=== PATIENT | male | born 1965 | race Caucasian/White ===

== ENCOUNTER 2018-08-29 12:59 | Inpatient (IN) ==
[2018-08-30] MEDS ORDERED: Metoprolol Tartrate 25 MG Tablet PO SCH (05:00)
--- NOTE | 2018-08-30 10:06 | P.HPIM ---
History of Present Illness Primary Care Physician: Dr. Roopa Brennan Chief Complaint: SOB, History of Present Illness: This is a 53-year-old male patient with a past medical history which includes depression/anxiety, hyperlipidemia, hypertension and severe aortic valve stenosis-2D echocardiogram done February 27, 2018 reveals mildly dilated left ventricle. Moderate concentric left ventricular hypertrophy. Left ventricular systolic function is normal with an estimated ejection fraction 60-65%. The left atrial size is mild to moderately dilated. Mild aortic dilation at level of sinus of Valsalva. The aortic root diameter is measured at 4.6 cm. Mural annular calcification is present. Mild mitral valve regurgitation. Moderate thickening of the aortic valve leaflets. Diffuse calcifications of aortic valve. No aortic valve regurgitation. Severe aortic valve stenosis. Aortic valve area measures 0.6 cm. Aortic valve mean gradient is 85 mmHg. There is mild tricuspid valve regurgitation. The estimated pulmonary arterial pressure is 41.1 mmHg. Estimated RAP 3 mmHg. Patient presented to [facility] with reported worsening shortness of breath and fatigue. Due to severe aortic stenosis patient was then transferred to [facility] for evaluation of valve replacement. Patient denies chest pain, N/V/D/C, fevers/chills, or changes in weight. PMH: depression/anxiety, hyperlipidemia, hypertension and severe aortic valve stenosis PSxH: hydroma removed as an infant tonsillectomy as a child varicose vein repair x2 Social history: ETOH use once a month former smoker smoked from age 11 quit 3 months ago illicit drug use marijuana 2 times per week cocaine last used 5 years ago Family medical history reviewed and noncontributory Medications and Allergies Allergies Allergy/AdvReac Type Severity Reaction Status Date / Time guaifenesin [From Mucinex] Allergy Agitation Verified 08/30/18 07:22 Home Medications Medication Instructions Recorded Confirmed Type alprazolam 1 mg PO HS 08/29/18 08/30/18 History carvedilol 12.5 mg PO BID 08/29/18 08/30/18 History ergocalciferol (vitamin D2) 50,000 PO WEEKLY 08/29/18 History lisinopril 10 mg PO DAILY 08/29/18 08/30/18 History Physical Exam Vital signs: Last Vital Signs Temp 97.5 F L 08/30/18 08:00 Pulse 70 08/30/18 08:00 Resp 18 08/30/18 08:00 BP 133/91 H 08/30/18 08:00 Pulse Ox 100 08/30/18 08:00 Narrative: GENERAL: This is a well-nourished, well-developed patient, in no apparent distress. CARDIOVASCULAR: Regular rate and rhythm with 4-5/6 systolic murmur present RESPIRATORY: Clear to auscultation. Breath sounds equal bilaterally. No wheezes , rales, or rhonchi. GASTROINTESTINAL: Abdomen soft, non-tender, nondistended. Normal active bowel sounds MUSCULOSKELETAL: Extremities without clubbing, cyanosis, or edema. NEURO: Alert & Oriented x4 to person, place, time, situation. Moves all ext x4 Results Labs CBC & Chem 7: 09/03/18 04:31 09/03/18 04:31 Caprini VTE Risk Assessment Caprini VTE Risk Assessment: No/Low Risk (score <= 1) Caprini Risk Assessment Model: Point Value = 1 Point Value = 2 Point Value = 3 Point Value = 5 Age 41-60 Minor surgery BMI > 25 kg/m2 Swollen legs Varicose veins or History of unexplained or recurrent spontaneous Oral contraceptives or hormone replacement Sepsis (< 1 month) Serious lung disease, including pneumonia (< 1 month) Abnormal pulmonary function Acute myocardial infarction Congestive heart failure (< 1 month) History of inflammatory bowel disease Medical patient at bed rest Age 61-74 Arthroscopic surgery Major open surgery (> 45 min) Laparoscopic surgery (> 45 min) Malignancy Confined to bed (> 72 hours) Immobilizing plaster cast Central venous access Age >= 75 History of VTE Family history of VTE Factor V Leiden Prothrombin [id number] Lupus anticoagulant Anticardiolipin antibodies Elevated serum homocysteine Heparin-induced thrombocytopenia Other congenital or acquired thrombophilia Stroke (< 1 month) Elective arthroplasty Hip, pelvis, or leg fracture Acute spinal cord injury (< 1 month) Prophylaxis Regimen: Total Risk Factor Score Risk Level Prophylaxis Regimen 0-1 Low Early ambulation 2 Moderate Order ONE of the following: *Sequential Compression Device (SCD) *Heparin 5000 units SQ BID 3-4 Higher Order ONE of the following medications: *Heparin 5000 units SQ TID *Enoxaparin/Lovenox 40 mg SQ daily (WT < 150 kg, CrCl > 30 mL/min) *Enoxaparin/Lovenox 30 mg SQ daily (WT < 150 kg, CrCl > 10-29 mL/min) *Enoxaparin/Lovenox 30 mg SQ BID (WT < 150 kg, CrCl > 30 mL/min) AND/OR *Sequential Compression Device (SCD) 5 or more Highest Order ONE of the following medications: *Heparin 5000 units SQ TID (Preferred with Epidurals) *Enoxaparin/Lovenox 40 mg SQ daily (WT < 150 kg, CrCl > 30 mL/min) *Enoxaparin/Lovenox 30 mg SQ daily (WT < 150 kg, CrCl > 10-29 mL/min) *Enoxaparin/Lovenox 30 mg SQ BID (WT < 150 kg, CrCl > 30 mL/min) AND *Sequential Compression Device (SCD) Assessment and Plan Plan This is a 53-year-old male patient with a past medical history which includes depression/anxiety, hyperlipidemia, hypertension and severe aortic valve stenosis-2D echocardiogram done February 27, 2018 reveals mildly dilated left ventricle. Moderate concentric left ventricular hypertrophy. Left ventricular systolic function is normal with an estimated ejection fraction 60-65%. The left atrial size is mild to moderately dilated. Mild aortic dilation at level of sinus of Valsalva. The aortic root diameter is measured at 4.6 cm. Mural annular calcification is present. Mild mitral valve regurgitation. Moderate thickening of the aortic valve leaflets. Diffuse calcifications of aortic valve. No aortic valve regurgitation. Severe aortic valve stenosis. Aortic valve area measures 0.6 cm. Aortic valve mean gradient is 85 mmHg. There is mild tricuspid valve regurgitation. The estimated pulmonary arterial pressure is 41.1 mmHg. Estimated RAP 3 mmHg. Patient presented to [facility] with reported of worsening shortness of breath. Due to severe aortic stenosis patient was then transferred to [facility] for evaluation of valve replacement. Severe aortic valve stenosis Patient presented to [facility] with reported worsening shortness of breath. Due to severe aortic stenosis patient was then transferred to [facility] for evaluation of valve replacement. Status post right and left cardiac catheterization 08/29/[address] Miranda with conclusion 1 mild pulmonary hypertension. 2 normal coronary arteries. 3 preserved left ventricular systolic function. 4 severe aortic stenosis with valve area 0.6 cm Echocardiogram 08/17/2018 final impression left ventricular hypertrophy with normal left ventricular wall motion and contractility. Normal left ventricular ejection fraction of 68%. Dilated left and right atria with no evidence of thrombus. Normal right ventricular dimension with normal wall motion and contractility. Normal main pulmonary artery, aortic root and aortic arch dimensions. Mildly dilated visualized proximal ascending aorta, with no evidence of tear or dissection. Dilated right ventricular outflow tract diameter. Normal inferior vena cava dimension and respiratory collapsibility. Aortic wall calcifications. Aortic and mitral annuli calcifications. Thickened and calcified margins of the coronary cusp of the aortic valve with severe restriction of motion. Calcified margins of the mitral valve leaflets with normal motility. Normal tricuspid valve and pulmonary valve. No pericardial effusion. Consult to cardiology Consult to cardiothoracic surgery Depression/anxiety Continue patient's home alprazolam 1 mg p.o. nightly Hyperlipidemia Cardiac diet Hypertension Continue patient's home carvedilol 12.5 mg p.o. twice daily and lisinopril 10 mg p.o. daily DVT prophylaxis with SCDs Attending Attestation The exam, history, and the medical decision-making described in the above note were completed with the assistance of the mid-level provider. I reviewed and agree with the findings presented. I attest that I had a [id number] encounter with the patient on the same day, and personally performed and documented my assessment and findings in the medical record. Patient examined. Assessment and plan formulated with Emily Diaz PA-C. I agree with the above. H&P: Quality VTE Deep Vein Thrombosis/Pulmonary Embolism Present on Admission: No
[2018-08-30] MEDS ORDERED: Acetaminophen 325 MG Tablet PO PRN (10:27)
[2018-08-30 11:20] LABS: Activated Partial Thrombo Time 26.6 sec (23.4-31.7); Baso # (Auto) 0.1 th/mm3 (0.0-0.2); Baso % (Auto) 0.9 % (0.0-2.0); Eos # (Auto) 0.3 th/mm3 (0.0-0.4); Eos % (Auto) 3.9 % (0.0-4.0); Hematocrit 41.1 % (39.0-51.0); Hemoglobin 13.6 gm/dL (13.0-17.0); Lymph # (Auto) 2.6 th/mm3 (1.0-4.8); Lymph % (Auto) 31.3 % (9.0-44.0); Mean Corpuscular HGB Conc 33.2 % (32.0-36.0); Mean Corpuscular Hemoglobin 27.7 pg (27.0-34.0); Mean Corpuscular Volume 83.5 fL (80.0-100.0); Mean Platelet Volume 6.8 fL (7.0-11.0); Mono # (Auto) 0.6 th/mm3 (0.0-0.9); Mono % (Auto) 6.9 % (0.0-8.0); Neut # (Auto) 4.7 th/mm3 (1.8-7.7); Platelet Count 358 th/mm3 (150-450); Prothrombin Time 10.3 sec (9.8-11.6); Red Blood Count 4.93 mil/mm3 (4.50-5.90); White Blood Count 8.2 th/mm3 (4.0-11.0)
[2018-08-30] MEDS ORDERED: ALPRAZolam 0.5 MG Tablet PO PRN (11:36)
[2018-08-30 11:42] LABS: Alanine Aminotransferase 30 U/L (12-78); Albumin 3.7 g/dL (3.4-5.0); Anion Gap 6 meq/L (5-15); Aspartate Aminotransferase 21 U/L (15-37); Blood Urea Nitrogen 19 mg/dL (7-18); Calcium 8.4 mg/dL (8.5-10.1); Carbon Dioxide 28.1 meq/L (21.0-32.0); Chloride 102 meq/L (98-107); Glomerular Filtration Rate 78 mL/min (>89); Glucose,Random 159 mg/dL (74-106); Potassium 4.2 meq/L (3.5-5.1); Sodium 136 meq/L (136-145)
[2018-08-30 11:43] LABS: Alkaline Phosphatase 63 U/L (45-117); Total Protein 8.6 g/dL (6.4-8.2)
[2018-08-30] MEDS ORDERED: Insulin Regular (For Infusion) 100 UNIT in Sodium Chlor 0.9% Inj 99 ML IV.CONT PRN (14:12)
[2018-08-30] MEDS ORDERED: Dextrose 50% in Water 50 ML Vial IV.PUSH PRN (14:12)
[2018-08-30] MEDS ORDERED: Chlorhexidine 4% Topical 120 APPLIC/120 ML Bottle TOPICAL SCH (14:15)
[2018-08-30] MEDS ORDERED: Sodium Chloride 0.9% Irr Bot 500 ML, ceFAZolin Inj 500 MG IRRIGATION SCH ×2 (14:15)
--- NOTE | 2018-08-30 14:59 | P.PNCV ---
- Note Subjective/Hospital Course: pt seen and evaluated , full consult to follow sts data discussed with pt RISK SCORES Procedure: Isolated AVR CALCULATE Risk of Mortality: 1.208% Renal Failure: 1.806% Permanent Stroke: 0.395% Prolonged Ventilation: 6.842% DSW Infection: 0.294% Reoperation: 2.358% Morbidity or Mortality: 9.380% Short Length of Stay: 48.411% Long Length of Stay: 4.189% Objective: Vital Signs - 24 hr 08/30/18 00:00 08/30/18 01:46 08/30/18 02:46 Temperature 97.7 F Pulse Rate 70 78 73 Respiratory Rate 18 Blood Pressure 123/86 Pulse Oximetry 98 08/30/18 03:00 08/30/18 04:00 08/30/18 05:00 Temperature 98.1 F Pulse Rate 72 70 66 Respiratory Rate 16 Blood Pressure 118/85 Pulse Oximetry 96 08/30/18 06:00 08/30/18 08:00 08/30/18 10:00 Temperature 97.5 F L Pulse Rate 71 70 75 Respiratory Rate 18 Blood Pressure 133/91 H Pulse Oximetry 100 08/30/18 11:00 08/30/18 12:00 08/30/18 12:34 Temperature 98.2 F Pulse Rate 70 76 Respiratory Rate 18 Blood Pressure 123/85 Pulse Oximetry 97 98 08/30/18 13:00 08/30/18 14:00 Temperature Pulse Rate 75 76 Respiratory Rate Blood Pressure Pulse Oximetry Labs: Laboratory Results - last 12 hr 08/30/18 08/30/18 08/30/18 10:49 10:49 10:49 WBC 8.2 RBC 4.93 Hgb 13.6 Hct 41.1 MCV 83.5 MCH 27.7 MCHC 33.2 RDW 16.0 Plt Count 358 MPV 6.8 L Prelim Diff (Auto) Slide review pending Neut % (Auto) 57.0 Lymph % (Auto) 31.3 [place] % (Auto) 6.9 Eos % (Auto) 3.9 Baso % (Auto) 0.9 Neut # (Auto) 4.7 Lymph # (Auto) 2.6 [place] # (Auto) 0.6 Eos # (Auto) 0.3 Baso # (Auto) 0.1 WBC Differential . Diff Scan Auto diff confirmed Differential Comment . PT 10.3 INR 1.0 APTT 26.6 Sodium 136 Potassium 4.2 Chloride 102 Carbon Dioxide 28.1 Anion Gap 6 BUN 19 H Creatinine 0.99 Estimated GFR 78 L Random Glucose 159 H Calcium 8.4 L Total Bilirubin 0.3 AST 21 ALT 30 Alkaline Phosphatase 63 Total Protein 8.6 H Albumin 3.7 Result Diagrams: 08/30/18 10:49 08/30/18 10:49
[2018-08-30] MEDS ORDERED: ceFAZolin 2 GM Premix Inj 2 GM/50 ML PIGGYBACK IV.SIG ONE (15:00)
[2018-08-30] MEDS ORDERED: ceFAZolin Inj 2,000 MG in Sodium Chlor 0.9% Inj 80 ML IV.SIG SCH (15:00)
--- NOTE | 2018-08-30 16:26 | XR ---
EXAM DATE: 08/30/2018 4:21 PM EST AGE/SEX: 53 years / Male INDICATIONS: Evaluate for pneumonia, pneumothorax, or communicable disease. Pre-op heart valve repla cement. CLINICAL DATA: This is the patient's initial encounter. Patient reports that signs and symptoms have been present for 1 day and indicates a pain score of 0/10. MEDICAL/SURGICAL HISTORY: Hypertension. None. COMPARISON: None. FINDINGS: PA and lateral views of the chest demonstrate the lungs to be symmetrically aerated without evidence of mass, infiltrate or effusion. The cardiomediastinal contours are unremarkable. Osseous structures are intact. CONCLUSION: No acute cardiopulmonary disease. Electronically signed by: Shay Ang MD Board Certified Radiologist 08/30/2018 4:24 PM EST
--- NOTE | 2018-08-30 17:28 | US ---
EXAM DATE: 08/30/2018 5:24 PM EST AGE/SEX: 53 years / Male INDICATIONS: Syncope. CLINICAL DATA: This is the patient's initial encounter. Patient reports that signs and symptoms have been present for 1 day and indicates a pain score of 0/10. MEDICAL/SURGICAL HISTORY: Hypertension. Hyperlipidemia. Varicose veins. None. COMPARISON: No prior exams available for comparison. VELOCITY PARAMETERS: ICA/CCA Ratio: Right 0.9 , Left 0.8 ICA: Right 47.4 cm/sec, Left 46.3 cm/sec CCA: Right 54.9 cm/sec, Left 60.0 cm/sec ECA: Right 72.6 cm/sec, Left 54.4 cm/sec Vertebral: Right 36.9 cm/sec antegrade, Left 31.3 cm/sec antegrade FINDINGS: Right Carotid: No significant plaque is visualized.The waveforms are within normal limits. Left Carotid: No significant plaque is visualized. The waveforms are within normal limits. Other: None. CONCLUSION: 1. Right Internal Carotid Artery: No significant stenosis or atherosclerotic plaque is visualized. 2. Left Internal Carotid Artery: No significant stenosis or atherosclerotic plaque is visualized. Electronically signed by: Gibran Camp MD Board Certified Radiologist 08/30/2018 5:27 PM EST
--- NOTE | 2018-08-30 17:56 | ECG ---
Date Performed: 08/30/2018 Time Performed: 11:13:12 PTAGE: 53 years EKG: Sinus rhythm with 1st degree A-V block. LVH with secondary repolarization abnormality Inferior/lateral ST-T winkler es are probably due to ventricular hypertrophy Abnormal ECG NO PREVIOUS TRACING DOCTOR: Florentino Chaudhry Interpretating Date/Time 08/30/2018 17:54:18
[2018-08-30] MEDS: Carvedilol 12.5 MG Tablet PO SCH (20:34)
[2018-08-30] MEDS: Senna/Docusate Sodium 8.6/50 MG Tablet PO SCH (20:34)
[2018-08-31 05:20] LABS: Baso # (Auto) 0.1 th/mm3 (0.0-0.2); Baso % (Auto) 1.2 % (0.0-2.0); Eos # (Auto) 0.4 th/mm3 (0.0-0.4); Eos % (Auto) 5.1 % (0.0-4.0); Lymph # (Auto) 2.4 th/mm3 (1.0-4.8); Mean Corpuscular HGB Conc 33.2 % (32.0-36.0); Mean Corpuscular Hemoglobin 27.5 pg (27.0-34.0); Mean Corpuscular Volume 82.8 fL (80.0-100.0); Mean Platelet Volume 6.9 fL (7.0-11.0); Mono # (Auto) 0.7 th/mm3 (0.0-0.9); Mono % (Auto) 9.2 % (0.0-8.0); Neut % (Auto) 52.5 % (16.0-70.0); Platelet Count 318 th/mm3 (150-450); Red Blood Count 4.72 mil/mm3 (4.50-5.90); Red Cell Distribution Width 15.7 % (11.6-17.2); White Blood Count 7.5 th/mm3 (4.0-11.0)
[2018-08-31 05:38] LABS: Albumin 3.7 g/dL (3.4-5.0); Anion Gap 6 meq/L (5-15); Aspartate Aminotransferase 20 U/L (15-37); Blood Urea Nitrogen 19 mg/dL (7-18); Chloride 102 meq/L (98-107); Glomerular Filtration Rate 85 mL/min (>89); Glucose,Random 106 mg/dL (74-106); Magnesium 2.2 mg/dL (1.5-2.5); Potassium 4.2 meq/L (3.5-5.1); Sodium 136 meq/L (136-145)
[2018-08-31 05:39] LABS: Alanine Aminotransferase 30 U/L (12-78)
[2018-08-31 05:40] LABS: Alkaline Phosphatase 58 U/L (45-117); Total Protein 8.2 g/dL (6.4-8.2)
--- NOTE | 2018-08-31 07:16 | MB ---
cc: Negrito Carrasquillo MD DATE: 08/30/2018 HISTORY OF PRESENT ILLNESS: A 53-year-old male transferred from [facility], patient of Dr. Juancarlos Brennan in [place] and Dr. Casa Miranda. Transferred post-heart catheterization for severe aortic stenosis. Transferred for evaluation for aortic valve replacement. 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 Recently was in [place] and had an episode of congestive heart failure where he was seen and evaluated and had an echocardiogram, which showed a normal ejection fraction 68%, severe aortic stenosis. Valve area by heart catheterization showed 0.63, mean gradient of 82. Underwent further evaluation with the cardiac catheterization by Dr. Miranda, which showed mild pulmonary hypertension, normal coronary arteries, preserved LV systolic function, severe with a valve area of 0.6 cm2. Hemodynamics showed a pulmonary capillary wedge of 25, cardiac output of 7.2. The patient has had progressive shortness of breath, increasing over the past year. He has known about the murmur for about 20 years, but did not have it worked up. He recently was treated for possible pneumonia back in June, was treated with antibiotics. While he was recently overseas, they placed him on diuretics. PAST MEDICAL HISTORY: Includes severe aortic stenosis, severe obesity with a BMI of 41, hypertension. PAST SURGICAL HISTORY: He has had a left shoulder cyst removed, some type of a hygroma, where he has a fairly large incision under the left axilla area. That occurred as a child. He has also had some vein stripping to both legs, initially in 2006 and then repeat in 2016. Tonsillectomy. ALLERGIES: GUAIFENESIN. HOME MEDICATIONS: Include p.r.n. Xanax, Coreg 12.5 b.i.d., lisinopril 10 p.o. daily. FAMILY HISTORY: Father of complications of an automobile accident at 81, but had a stroke in his 70s. Mother alive and healthy. SOCIAL HISTORY: The patient is . Two stepchildren. Smoked remotely in the past, 3 packs per week. He quit a month and a half ago. He has been smoking since the age of 12. Rare alcohol, occasional marijuana. REVIEW OF SYSTEMS: GENERAL: No night sweats, fever, heat and cold intolerance. SKIN: No psoriasis, itching or hives. HEENT: No blurred vision, hearing loss. RESPIRATORY: Positive for shortness of breath with exertion. No paroxysmal nocturnal dyspnea. CARDIOVASCULAR: He has had some mild chest tightness with exertion. No syncope. GASTROINTESTINAL: No diarrhea or vomiting. GENITOURINARY: No burning, frequency, urgency. CENTRAL NERVOUS SYSTEM: No history of TIA, CVA or seizure disorder. ENDOCRINOLOGY: No history of diabetes or hypothyroidism. PHYSICAL EXAMINATION: VITAL SIGNS: Blood pressure 120/80, heart rate is 76, temperature T-max 98.2. GENERAL: Awake, alert, in no acute distress. HEENT: Head is normocephalic, atraumatic. Pupils equal and reactive. Oral mucosa pink, moist. NECK: Supple. No JVD. CARDIOVASCULAR: Heart sounds S1, S2 with a grade 2-3/6 systolic murmur best heard on the left sternal border. LUNGS: Clear to auscultation. No wheezes, rales or rhonchi. ABDOMEN: Soft, obese, nontender. EXTREMITIES: Reveal fairly large varicosities to both legs, good distal pulses. No lesions or rashes noted to the skin. LABORATORY DATA: Shows hemoglobin of 13, hematocrit of 41, white cell count 8.2, platelet count of 358. Sodium 136, potassium 4.2, BUN of 19, creatinine 0.99, glucose 159. INR 1.0. RADIOLOGICAL EXAMS: Are pending. Sinus rhythm, first-degree AV block. He has got some LVH, nonspecific ST changes. IMPRESSION: This is a 53-year-old male with severe aortic stenosis with a valve area of 0.6 cm2, positive for symptoms including chest tightness, shortness of breath, some lightheadedness. No syncope. PLAN: At this time is for further evaluation and workup and then planning for aortic valve replacement. The patient was seen by Dr. Negrito Carrasquillo and the patient is requesting evaluation for a tissue valve at this time. Plan will be for Monday. Dictated by Ashley Jacobo APRN The patient was examined and chart reviewed on 08/30/2018. I agree with above.The ECHO and angiographic findings were discussed in detail with the patient and his . I agree that he will maximally benefit from Aortic Valve Replacement therapy. The option of mechanical versus tissue valve was discussed in detail as well as the advantages and disadvantages of both types of valves. He understands the provided information and wishes to opt for the tissue valve. The risks, complications including but not limited to bleeding, infection, stroke, myocardial injury and , and benefits of the surgical procedure were discussed in details and all questions answered. He understands the provided information and agrees to proceed with the planned operation. We will plan on proceeding with the surgical procedure as describe above on Monday, . Thank you for allowing me to participate in the care of this patient. MD ISRRAEL Cerrato/mellisa , 03:08 PM , 03:21 PM BERTHA
[2018-08-31] MEDS: Senna/Docusate Sodium 8.6/50 MG Tablet PO SCH ×2 (09:24→21:35)
[2018-08-31] MEDS: Lisinopril 10 MG Tablet PO SCH (09:24)
[2018-08-31] MEDS: Carvedilol 12.5 MG Tablet PO SCH ×2 (09:24→21:36)
--- NOTE | 2018-08-31 14:57 | P.PNCV ---
- Note Subjective/Hospital Course: 53-year-old male transferred from [facility], patient of Dr. Juancarlos Brennan in [place] and Dr. Casa Miranda. Transferred post-heart catheterization for severe aortic stenosis ( aortic valve replacement). 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 Recently was in [place] and had an episode of congestive heart failure where he was seen and evaluated and had an echocardiogram, which showed a normal ejection fraction 68%, severe aortic stenosis. Valve area by heart catheterization showed 0.63, mean gradient of 82. Underwent further evaluation with the cardiac catheterization by Dr. Miranda, , normal coronary arteries, preserved LV systolic function, severe with a valve area of 0.6 cm2. Hemodynamics showed a pulmonary capillary wedge of 25, cardiac output of 7.2. The patient has had progressive shortness of breath, increasing over the past year. He has known about the murmur for about 20 years, but did not have it worked up. He recently was treated for possible pneumonia back in June, was treated with antibiotics. While he was recently overseas, they placed him on diuretics. PAST MEDICAL HISTORY: Includes severe aortic stenosis, severe obesity with a BMI of 41, hypertension. PAST SURGICAL HISTORY: left shoulder cyst removed, some type of a hygroma, where he has a fairly large incision under the left axilla area, age 17months, vein stripping to both lower legs 08/31 pt denies any chest pain or SOB Carotid US ok for surgery on Monday Objective: Vital Signs - 24 hr 08/30/18 15:00 08/30/18 15:44 08/30/18 16:00 Temperature 98.1 F Pulse Rate 68 72 68 Respiratory Rate 18 Blood Pressure 123/86 Pulse Oximetry 98 08/30/18 17:00 08/30/18 18:09 08/30/18 18:24 Temperature 98.9 F Pulse Rate 71 74 75 Respiratory Rate 17 Blood Pressure 124/78 Pulse Oximetry 98 08/30/18 19:00 08/30/18 20:00 08/30/18 21:00 Temperature 98.5 F Pulse Rate 76 80 84 Respiratory Rate 16 Blood Pressure 116/80 Pulse Oximetry 96 08/30/18 22:00 08/30/18 23:00 08/30/18 23:59 Temperature 99.5 F Pulse Rate 82 76 78 Respiratory Rate 18 Blood Pressure 127/72 Pulse Oximetry 95 08/31/18 00:00 08/31/18 01:00 08/31/18 02:00 Temperature Pulse Rate 68 68 70 Respiratory Rate Blood Pressure Pulse Oximetry 08/31/18 03:00 08/31/18 04:00 08/31/18 05:00 Temperature 98.0 F Pulse Rate 69 76 64 Respiratory Rate 16 Blood Pressure 125/79 Pulse Oximetry 94 L 08/31/18 06:00 08/31/18 07:00 08/31/18 08:00 Temperature 97.5 F L Pulse Rate 87 77 77 Respiratory Rate 16 Blood Pressure 136/87 Pulse Oximetry 94 L 08/31/18 09:00 08/31/18 10:00 08/31/18 11:00 Temperature Pulse Rate 77 79 69 Respiratory Rate Blood Pressure Pulse Oximetry 08/31/18 12:00 Temperature 98.9 F Pulse Rate 69 Respiratory Rate 16 Blood Pressure 109/77 Pulse Oximetry 95 GENERAL: SKIN: Warm and dry. HEAD: Normocephalic. EYES: No scleral icterus. No injection or drainage. NECK: Supple, trachea midline. No JVD or lymphadenopathy. CARDIOVASCULAR: Regular rate and rhythm without , gallops, or rubs, 3/6 sm RESPIRATORY: Breath sounds equal bilaterally. No accessory muscle use. GASTROINTESTINAL: Abdomen soft, non-tender, nondistended. MUSCULOSKELETAL: No cyanosis, or edema. BACK: Nontender without obvious deformity. No CVA tenderness. Labs: Laboratory Results - last 12 hr 08/31/18 08/31/18 04:12 04:12 WBC 7.5 RBC 4.72 Hgb 13.0 Hct 39.0 MCV 82.8 MCH 27.5 MCHC 33.2 RDW 15.7 Plt Count 318 MPV 6.9 L Neut % (Auto) 52.5 Lymph % (Auto) 32.0 [place] % (Auto) 9.2 H Eos % (Auto) 5.1 H Baso % (Auto) 1.2 Neut # (Auto) 4.0 Lymph # (Auto) 2.4 [place] # (Auto) 0.7 Eos # (Auto) 0.4 Baso # (Auto) 0.1 WBC Differential . Differential Comment Auto diff final Sodium 136 Potassium 4.2 Chloride 102 Carbon Dioxide 28.0 Anion Gap 6 BUN 19 H Creatinine 0.92 Estimated GFR 85 L Random Glucose 106 Calcium 9.0 Magnesium 2.2 Total Bilirubin 0.3 AST 20 ALT 30 Alkaline Phosphatase 58 Total Protein 8.2 Albumin 3.7 Result Diagrams: 08/31/18 04:12 08/31/18 04:12 Telemetry: NSR - Plan (1) Aortic stenosis Plan: for surgery on Monday
--- NOTE | 2018-08-31 17:36 | P.PNIM ---
Subjective Interval history: No new clinical complaints. Physical Exam Vital signs: Last Vital Signs Temp 98.8 F 08/31/18 16:00 Pulse 69 08/31/18 16:00 Resp 16 08/31/18 16:00 BP 108/72 08/31/18 16:00 Pulse Ox 95 08/31/18 16:00 Narrative: GENERAL: This is a well-nourished, well-developed patient, in no apparent distress. CARDIOVASCULAR: Regular rate and rhythm with 4-5/6 systolic murmur present RESPIRATORY: Clear to auscultation. Breath sounds equal bilaterally. No wheezes , rales, or rhonchi. GASTROINTESTINAL: Abdomen soft, non-tender, nondistended. Normal active bowel sounds MUSCULOSKELETAL: Extremities without clubbing, cyanosis, or edema. NEURO: Alert & Oriented x4 to person, place, time, situation. Moves all ext x4 Results Labs CBC & Chem 7: 09/03/18 04:31 09/03/18 04:31 Assessment and Plan Assessment (1) Aortic stenosis: Code(s): I35.0 - Nonrheumatic aortic (valve) stenosis Status: Acute (2) Morbid obesity: Code(s): E66.01 - Morbid (severe) obesity due to excess calories Status: Chronic Plan This is a 53-year-old male patient with a past medical history which includes depression/anxiety, hyperlipidemia, hypertension and severe aortic valve stenosis-2D echocardiogram done February 27, 2018 reveals mildly dilated left ventricle. Moderate concentric left ventricular hypertrophy. Left ventricular systolic function is normal with an estimated ejection fraction 60-65%. The left atrial size is mild to moderately dilated. Mild aortic dilation at level of sinus of Valsalva. The aortic root diameter is measured at 4.6 cm. Mural annular calcification is present. Mild mitral valve regurgitation. Moderate thickening of the aortic valve leaflets. Diffuse calcifications of aortic valve. No aortic valve regurgitation. Severe aortic valve stenosis. Aortic valve area measures 0.6 cm. Aortic valve mean gradient is 85 mmHg. There is mild tricuspid valve regurgitation. The estimated pulmonary arterial pressure is 41.1 mmHg. Estimated RAP 3 mmHg. Patient presented to [facility] with reported of worsening shortness of breath. Due to severe aortic stenosis patient was then transferred to [facility] for evaluation of valve replacement. Severe aortic valve stenosis Patient presented to [facility] with reported worsening shortness of breath. Due to severe aortic stenosis patient was then transferred to [facility] for evaluation of valve replacement. Status post right and left cardiac catheterization 08/29/[address] Miranda with conclusion 1 mild pulmonary hypertension. 2 normal coronary arteries. 3 preserved left ventricular systolic function. 4 severe aortic stenosis with valve area 0.6 cm Echocardiogram 08/17/2018 final impression left ventricular hypertrophy with normal left ventricular wall motion and contractility. Normal left ventricular ejection fraction of 68%. Dilated left and right atria with no evidence of thrombus. Normal right ventricular dimension with normal wall motion and contractility. Normal main pulmonary artery, aortic root and aortic arch dimensions. Mildly dilated visualized proximal ascending aorta, with no evidence of tear or dissection. Dilated right ventricular outflow tract diameter. Normal inferior vena cava dimension and respiratory collapsibility. Aortic wall calcifications. Aortic and mitral annuli calcifications. Thickened and calcified margins of the coronary cusp of the aortic valve with severe restriction of motion. Calcified margins of the mitral valve leaflets with normal motility. Normal tricuspid valve and pulmonary valve. No pericardial effusion. - pt planned for aortic valve repair with [facility], Dr. Carrasquillo, on 09/03/18 - supportive care - DVT prophylaxis Depression/anxiety Continue patient's home alprazolam 1 mg p.o. nightly Hyperlipidemia Cardiac diet Hypertension Continue patient's home carvedilol 12.5 mg p.o. twice daily and lisinopril 10 mg p.o. daily DVT prophylaxis with SCDs Progress Note: Quality VTE Deep Vein Thrombosis/Pulmonary Embolism Present on Admission: No _ (1) Aortic stenosis Qualifiers: Cardiac valve disease etiology:
[2018-09-01] MEDS: Carvedilol 12.5 MG Tablet PO SCH ×2 (08:41→21:36)
[2018-09-01] MEDS: Senna/Docusate Sodium 8.6/50 MG Tablet PO SCH ×2 (08:41→21:36)
[2018-09-01] MEDS: Lisinopril 10 MG Tablet PO SCH (08:42)
--- NOTE | 2018-09-01 13:05 | P.PNCV ---
- Note Subjective/Hospital Course: 53-year-old male transferred from [facility], patient of Dr. Juancarlos Brennan in [place] and Dr. Casa Miranda. Transferred post-heart catheterization for severe aortic stenosis ( aortic valve replacement). 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 Recently was in [place] and had an episode of congestive heart failure where he was seen and evaluated and had an echocardiogram, which showed a normal ejection fraction 68%, severe aortic stenosis. Valve area by heart catheterization showed 0.63, mean gradient of 82. Underwent further evaluation with the cardiac catheterization by Dr. Miranda, , normal coronary arteries, preserved LV systolic function, severe with a valve area of 0.6 cm2. Hemodynamics showed a pulmonary capillary wedge of 25, cardiac output of 7.2. The patient has had progressive shortness of breath, increasing over the past year. He has known about the murmur for about 20 years, but did not have it worked up. He recently was treated for possible pneumonia back in June, was treated with antibiotics. While he was recently overseas, they placed him on diuretics. PAST MEDICAL HISTORY: Includes severe aortic stenosis, severe obesity with a BMI of 41, hypertension. PAST SURGICAL HISTORY: left shoulder cyst removed, some type of a hygroma, where he has a fairly large incision under the left axilla area, age 17months, vein stripping to both lower legs 08/31 pt denies any chest pain or SOB Carotid US ok for surgery on Saturday 09/01 Doing well Clinically and hemodynamically stable OR Monday morning Objective: Vital Signs - 24 hr 08/31/18 14:00 08/31/18 15:00 08/31/18 16:00 Temperature 98.8 F Pulse Rate 77 69 68 Respiratory Rate 16 Blood Pressure 108/72 Pulse Oximetry 95 08/31/18 17:00 08/31/18 18:00 08/31/18 19:00 Temperature Pulse Rate 71 73 65 Respiratory Rate Blood Pressure Pulse Oximetry 08/31/18 20:00 08/31/18 21:00 08/31/18 22:00 Temperature 98.4 F Pulse Rate 70 66 70 Respiratory Rate 14 Blood Pressure 118/88 Pulse Oximetry 95 08/31/18 23:00 09/01/18 00:00 09/01/18 01:00 Temperature 98 F Pulse Rate 66 65 62 Respiratory Rate 18 Blood Pressure 122/61 Pulse Oximetry 96 09/01/18 02:00 09/01/18 03:00 09/01/18 04:00 Temperature 97.7 F Pulse Rate 67 65 73 Respiratory Rate 16 Blood Pressure 117/62 Pulse Oximetry 96 09/01/18 05:00 09/01/18 06:00 09/01/18 07:00 Temperature Pulse Rate 68 66 64 Respiratory Rate Blood Pressure Pulse Oximetry 09/01/18 08:00 09/01/18 09:00 09/01/18 09:39 Temperature 97.9 F Pulse Rate 77 69 Respiratory Rate 16 Blood Pressure 118/68 Pulse Oximetry 96 96 09/01/18 10:00 09/01/18 11:00 Temperature Pulse Rate 69 66 Respiratory Rate Blood Pressure Pulse Oximetry Result Diagrams: 08/31/18 04:12 08/31/18 04:12 - Plan (1) Aortic stenosis Plan: for surgery on Monday
--- NOTE | 2018-09-01 17:57 | P.PNIM ---
Subjective Interval history: Patient resting in bed offers no new concerns/complaints planning for surgery Monday09/03/18 Physical Exam Vital signs: Last Vital Signs Temp 98.4 F 09/01/18 15:53 Pulse 73 09/01/18 15:53 Resp 16 09/01/18 15:53 BP 102/64 09/01/18 15:53 Pulse Ox 95 09/01/18 15:53 Narrative: GENERAL: This is a well-nourished, well-developed patient, in no apparent distress. CARDIOVASCULAR: Regular rate and rhythm with 4-5/6 systolic murmur present RESPIRATORY: Clear to auscultation. Breath sounds equal bilaterally. No wheezes , rales, or rhonchi. GASTROINTESTINAL: Abdomen soft, non-tender, nondistended. Normal active bowel sounds MUSCULOSKELETAL: Extremities without clubbing, cyanosis, or edema. NEURO: Alert & Oriented x4 to person, place, time, situation. Moves all ext x4 Results Labs CBC & Chem 7: 09/03/18 04:31 09/03/18 04:31 Assessment and Plan Assessment (1) Aortic stenosis: Code(s): I35.0 - Nonrheumatic aortic (valve) stenosis Status: Acute (2) Morbid obesity: Code(s): E66.01 - Morbid (severe) obesity due to excess calories Status: Chronic Plan This is a 53-year-old male patient with a past medical history which includes depression/anxiety, hyperlipidemia, hypertension and severe aortic valve stenosis-2D echocardiogram done February 27, 2018 reveals mildly dilated left ventricle. Moderate concentric left ventricular hypertrophy. Left ventricular systolic function is normal with an estimated ejection fraction 60-65%. The left atrial size is mild to moderately dilated. Mild aortic dilation at level of sinus of Valsalva. The aortic root diameter is measured at 4.6 cm. Mural annular calcification is present. Mild mitral valve regurgitation. Moderate thickening of the aortic valve leaflets. Diffuse calcifications of aortic valve. No aortic valve regurgitation. Severe aortic valve stenosis. Aortic valve area measures 0.6 cm. Aortic valve mean gradient is 85 mmHg. There is mild tricuspid valve regurgitation. The estimated pulmonary arterial pressure is 41.1 mmHg. Estimated RAP 3 mmHg. Patient presented to [facility] with reported of worsening shortness of breath. Due to severe aortic stenosis patient was then transferred to [facility] for evaluation of valve replacement. Severe aortic valve stenosis Patient presented to [facility] with reported worsening shortness of breath. Due to severe aortic stenosis patient was then transferred to [facility] for evaluation of valve replacement. Status post right and left cardiac catheterization 08/29/[address] Miranda with conclusion 1 mild pulmonary hypertension. 2 normal coronary arteries. 3 preserved left ventricular systolic function. 4 severe aortic stenosis with valve area 0.6 cm Echocardiogram 08/17/2018 final impression left ventricular hypertrophy with normal left ventricular wall motion and contractility. Normal left ventricular ejection fraction of 68%. Dilated left and right atria with no evidence of thrombus. Normal right ventricular dimension with normal wall motion and contractility. Normal main pulmonary artery, aortic root and aortic arch dimensions. Mildly dilated visualized proximal ascending aorta, with no evidence of tear or dissection. Dilated right ventricular outflow tract diameter. Normal inferior vena cava dimension and respiratory collapsibility. Aortic wall calcifications. Aortic and mitral annuli calcifications. Thickened and calcified margins of the coronary cusp of the aortic valve with severe restriction of motion. Calcified margins of the mitral valve leaflets with normal motility. Normal tricuspid valve and pulmonary valve. No pericardial effusion. - pt planned for aortic valve surgery with [facility], Dr. Carrasquillo, on 09/03/18 - supportive care - DVT prophylaxis Depression/anxiety Continue patient's home alprazolam 1 mg p.o. nightly Hyperlipidemia Cardiac diet Hypertension Continue patient's home carvedilol 12.5 mg p.o. twice daily and lisinopril 10 mg p.o. daily DVT prophylaxis with SCDs Attending Attestation The exam, history, and the medical decision-making described in the above note were completed with the assistance of the mid-level provider. I reviewed and agree with the findings presented. I attest that I had a [id number] encounter with the patient on the same day, and personally performed and documented my assessment and findings in the medical record. Patient examined. Assessment and plan formulated with Emily Diaz PA-C. I agree with the above. Progress Note: Quality VTE Deep Vein Thrombosis/Pulmonary Embolism Present on Admission: No _ (1) Aortic stenosis Qualifiers: Cardiac valve disease etiology:
[2018-09-02] MEDS: Carvedilol 12.5 MG Tablet PO SCH ×2 (08:45→20:29)
[2018-09-02] MEDS: Lisinopril 10 MG Tablet PO SCH (08:45)
[2018-09-02] MEDS: Senna/Docusate Sodium 8.6/50 MG Tablet PO SCH ×2 (08:46→21:30)
--- NOTE | 2018-09-02 09:39 | P.PNCV ---
- Note Subjective/Hospital Course: 53-year-old male transferred from [facility], patient of Dr. Juancarlos Brennan in [place] and Dr. Casa Miranda. Transferred post-heart catheterization for severe aortic stenosis ( aortic valve replacement). 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 Recently was in [place] and had an episode of congestive heart failure where he was seen and evaluated and had an echocardiogram, which showed a normal ejection fraction 68%, severe aortic stenosis. Valve area by heart catheterization showed 0.63, mean gradient of 82. Underwent further evaluation with the cardiac catheterization by Dr. Miranda, , normal coronary arteries, preserved LV systolic function, severe with a valve area of 0.6 cm2. Hemodynamics showed a pulmonary capillary wedge of 25, cardiac output of 7.2. The patient has had progressive shortness of breath, increasing over the past year. He has known about the murmur for about 20 years, but did not have it worked up. He recently was treated for possible pneumonia back in June, was treated with antibiotics. While he was recently overseas, they placed him on diuretics. PAST MEDICAL HISTORY: Includes severe aortic stenosis, severe obesity with a BMI of 41, hypertension. PAST SURGICAL HISTORY: left shoulder cyst removed, some type of a hygroma, where he has a fairly large incision under the left axilla area, age 19months, vein stripping to both lower legs 08/31 pt denies any chest pain or SOB Carotid US ok for surgery on Saturday 09/01 Doing well Clinically and hemodynamically stable OR Monday morning 09/02 No issues overnight Planned OR tomorrow morning Objective: Vital Signs - 24 hr 09/01/18 09:39 09/01/18 10:00 09/01/18 11:00 Temperature Pulse Rate 69 66 Respiratory Rate Blood Pressure Pulse Oximetry 96 09/01/18 12:00 09/01/18 13:00 09/01/18 14:00 Temperature 98.1 F Pulse Rate 70 74 70 Respiratory Rate 16 Blood Pressure 100/65 Pulse Oximetry 96 09/01/18 15:00 09/01/18 15:53 09/01/18 16:00 Temperature 98.4 F Pulse Rate 69 73 68 Respiratory Rate 16 Blood Pressure 102/64 Pulse Oximetry 95 95 09/01/18 17:00 09/01/18 18:00 09/01/18 19:00 Temperature Pulse Rate 69 72 68 Respiratory Rate Blood Pressure Pulse Oximetry 09/01/18 20:00 09/01/18 21:00 09/01/18 22:00 Temperature 98.1 F Pulse Rate 75 62 72 Respiratory Rate 16 Blood Pressure 114/74 Pulse Oximetry 97 09/01/18 23:00 09/02/18 00:00 09/02/18 01:00 Temperature 98.2 F Pulse Rate 74 65 66 Respiratory Rate 16 Blood Pressure 119/79 Pulse Oximetry 96 09/02/18 02:00 09/02/18 03:00 09/02/18 04:00 Temperature 99.0 F Pulse Rate 63 64 61 Respiratory Rate 16 Blood Pressure 121/75 Pulse Oximetry 97 09/02/18 05:00 09/02/18 06:00 09/02/18 09:13 Temperature Pulse Rate 62 66 Respiratory Rate Blood Pressure Pulse Oximetry 95 Result Diagrams: 08/31/18 04:12 08/31/18 04:12 - Plan (1) Aortic stenosis Plan: for surgery on Monday
[2018-09-02 10:11] LABS: INR 1.1 Ratio; Prothrombin Time 10.7 sec (9.8-11.6)
--- NOTE | 2018-09-02 11:18 | P.PNIM ---
Subjective Interval history: Patient offers no new concerns/complaints Plan for surgery Monday 09/03 Physical Exam Vital signs: Last Vital Signs Temp 99.0 F 09/02/18 04:00 Pulse 66 09/02/18 11:00 Resp 16 09/02/18 04:00 BP 121/75 09/02/18 04:00 Pulse Ox 95 09/02/18 09:13 Narrative: GENERAL: This is a well-nourished, well-developed patient, in no apparent distress. CARDIOVASCULAR: Regular rate and rhythm with 4-5/6 systolic murmur present RESPIRATORY: Clear to auscultation. Breath sounds equal bilaterally. No wheezes , rales, or rhonchi. GASTROINTESTINAL: Abdomen soft, non-tender, nondistended. Normal active bowel sounds MUSCULOSKELETAL: Extremities without clubbing, cyanosis, or edema. NEURO: Alert & Oriented x4 to person, place, time, situation. Moves all ext x4 Results Labs CBC & Chem 7: 09/03/18 04:31 09/03/18 04:31 Assessment and Plan Assessment (1) Aortic stenosis: Code(s): I35.0 - Nonrheumatic aortic (valve) stenosis Status: Acute (2) Morbid obesity: Code(s): E66.01 - Morbid (severe) obesity due to excess calories Status: Chronic Plan This is a 53-year-old male patient with a past medical history which includes depression/anxiety, hyperlipidemia, hypertension and severe aortic valve stenosis-2D echocardiogram done February 27, 2018 reveals mildly dilated left ventricle. Moderate concentric left ventricular hypertrophy. Left ventricular systolic function is normal with an estimated ejection fraction 60-65%. The left atrial size is mild to moderately dilated. Mild aortic dilation at level of sinus of Valsalva. The aortic root diameter is measured at 4.6 cm. Mural annular calcification is present. Mild mitral valve regurgitation. Moderate thickening of the aortic valve leaflets. Diffuse calcifications of aortic valve. No aortic valve regurgitation. Severe aortic valve stenosis. Aortic valve area measures 0.6 cm. Aortic valve mean gradient is 85 mmHg. There is mild tricuspid valve regurgitation. The estimated pulmonary arterial pressure is 41.1 mmHg. Estimated RAP 3 mmHg. Patient presented to [facility] with reported of worsening shortness of breath. Due to severe aortic stenosis patient was then transferred to [facility] for evaluation of valve replacement. Severe aortic valve stenosis Patient presented to [facility] with reported worsening shortness of breath. Due to severe aortic stenosis patient was then transferred to [facility] for evaluation of valve replacement. Status post right and left cardiac catheterization 08/29/[address] Miranda with conclusion 1 mild pulmonary hypertension. 2 normal coronary arteries. 3 preserved left ventricular systolic function. 4 severe aortic stenosis with valve area 0.6 cm Echocardiogram 08/17/2018 final impression left ventricular hypertrophy with normal left ventricular wall motion and contractility. Normal left ventricular ejection fraction of 68%. Dilated left and right atria with no evidence of thrombus. Normal right ventricular dimension with normal wall motion and contractility. Normal main pulmonary artery, aortic root and aortic arch dimensions. Mildly dilated visualized proximal ascending aorta, with no evidence of tear or dissection. Dilated right ventricular outflow tract diameter. Normal inferior vena cava dimension and respiratory collapsibility. Aortic wall calcifications. Aortic and mitral annuli calcifications. Thickened and calcified margins of the coronary cusp of the aortic valve with severe restriction of motion. Calcified margins of the mitral valve leaflets with normal motility. Normal tricuspid valve and pulmonary valve. No pericardial effusion. - pt planned for aortic valve surgery with [facility], Dr. Carrasquillo, on 09/03/18 - supportive care - DVT prophylaxis Depression/anxiety Continue patient's home alprazolam 1 mg p.o. nightly Hyperlipidemia Cardiac diet Hypertension Continue patient's home carvedilol 12.5 mg p.o. twice daily and lisinopril 10 mg p.o. daily BMP and CBC in AM DVT prophylaxis with SCDs Attending Attestation The exam, history, and the medical decision-making described in the above note were completed with the assistance of the mid-level provider. I reviewed and agree with the findings presented. I attest that I had a [id number] encounter with the patient on the same day, and personally performed and documented my assessment and findings in the medical record. Patient examined. Assessment and plan formulated with Emily Diaz PA-C. I agree with the above. Progress Note: Quality VTE Deep Vein Thrombosis/Pulmonary Embolism Present on Admission: No _ (1) Aortic stenosis Qualifiers: Cardiac valve disease etiology:
--- NOTE | 2018-09-02 15:05 | CT ---
EXAM DATE: 09/02/2018 2:50 PM EST AGE/SEX: 53 years / Male INDICATIONS: Pre Op Valve replacement CLINICAL DATA: This is the patient's initial encounter. Patient reports that signs and symptoms have been present for 1 day and indicates a pain score of 2/10. MEDICAL/SURGICAL HISTORY: Hypertension. None. RADIATION DOSE: 20.87 CTDI (mGy) COMPARISON: No prior exams available for comparison. TECHNIQUE: Multiple contiguous axial images were obtained through the chest without contrast. Image s were obtained in suspended respiration using multiple row detector helical technique. Using automa aaron exposure control and adjustment of the mA and/or kV according to patient size, radiation dose was kept as low as reasonably achievable to obtain optimal diagnostic quality images. DICOM format imag e data is available electronically for review and comparison. FINDINGS: Lungs: The lungs are symmetrically aerated. No infiltrates or nodular densities are seen. Mediastinum: Significant adenopathy is not seen. There is aneurysmal dilatation of the ascending aor ta measuring up to 5 cm. Dense calcifications are seen at the aortic valve level. Coronary artery kaur cifications are present. Pleurae: No evidence of focal thickening or pleural effusion. Axillae: Unremarkable. Bony Structures: Unremarkable. Miscellaneous: The examination was extended to include the upper abdomen, and both adrenal glands ar e normal in size and configuration. There is mild distention of the inferior aspect of the esophagus versus a mild hiatal hernia. CONCLUSION: 1. Dense calcification of the aortic valve level. 2. Aneurysmal dilatation of the ascending aorta. Electronically signed by: Gibran Ramirez MD Board Certified Radiologist 09/02/2018 3:04 PM EST
[2018-09-03] MEDS ORDERED: Chlorhexidine Gluconate 2% 1 Pack (2 Cloths) TOPICAL ONE (01:16)
[2018-09-03] MEDS ORDERED: Metoprolol Tartrate 25 MG Tablet PO ONE (01:16)
[2018-09-03] MEDS ORDERED: Sodium Chlor 0.9% Inj 500 ML IV.SIG SCH (02:00)
[2018-09-03 05:16] LABS: Baso # (Auto) 0.1 th/mm3 (0.0-0.2); Baso % (Auto) 1.1 % (0.0-2.0); Eos # (Auto) 0.4 th/mm3 (0.0-0.4); Eos % (Auto) 4.9 % (0.0-4.0); Hematocrit 40.6 % (39.0-51.0); Hemoglobin 13.4 gm/dL (13.0-17.0); Lymph # (Auto) 2.5 th/mm3 (1.0-4.8); Lymph % (Auto) 33.4 % (9.0-44.0); Mean Corpuscular HGB Conc 32.9 % (32.0-36.0); Mean Corpuscular Hemoglobin 27.2 pg (27.0-34.0); Mean Corpuscular Volume 82.6 fL (80.0-100.0); Mean Platelet Volume 7.1 fL (7.0-11.0); Mono # (Auto) 0.7 th/mm3 (0.0-0.9); Mono % (Auto) 9.5 % (0.0-8.0); Neut # (Auto) 3.8 th/mm3 (1.8-7.7); Neut % (Auto) 51.1 % (16.0-70.0); Platelet Count 299 th/mm3 (150-450); Red Blood Count 4.91 mil/mm3 (4.50-5.90); Red Cell Distribution Width 15.7 % (11.6-17.2); White Blood Count 7.5 th/mm3 (4.0-11.0)
[2018-09-03 05:21] LABS: Calcium 8.5 mg/dL (8.5-10.1); Carbon Dioxide 26.7 meq/L (21.0-32.0); Potassium 4.1 meq/L (3.5-5.1)
[2018-09-03] MEDS ORDERED: Heparin - SQ 10,000 UNITS/ML Vial ONE ×2 (06:12→06:13)
[2018-09-03] MEDS ORDERED: ceFAZolin 1 GM Premix Inj 3 GM/150 ML PIGGYBACK IV.SIG ONE (06:46)
[2018-09-03] MEDS ORDERED: CUST1000P IRRIGATION ONE (07:19)
[2018-09-03] MEDS ORDERED: Potassium Chloride Inj 40 MEQ/20 ML Vial ONE (07:19)
[2018-09-03] MEDS ORDERED: Heparin 10,000 UNITS/10 ML Vial (for IV use) ONE (07:20)
[2018-09-03] MEDS ORDERED: Albumin Human 25% Inj 50 ML IV.SIG ONE (07:22)
[2018-09-03] MEDS: Senna/Docusate Sodium 8.6/50 MG Tablet PO SCH ×2 (10:18→20:43)
[2018-09-03] MEDS: Lisinopril 10 MG Tablet PO SCH (10:18)
[2018-09-03] MEDS: Carvedilol 12.5 MG Tablet PO SCH ×2 (10:18→20:26)
--- NOTE | 2018-09-03 11:08 | P.DCO ---
- Diagnosis (1) S/P AVR Status: Acute (2) Aortic stenosis Status: Acute (3) Morbid obesity Status: Chronic - Home Health Nursing Order: Medical education, Signs/symptoms of disease process, Wound care and dressing changes, Nursing assessment with vital signs Instructions: Heart and Vascular Surgery patients *Special attention to sternal dressing Mandatory frequency Assess and evaluation, 4 days in a row The next week 3X week 2 times a week for 4 weeks 1 time a week for 5 weeks Schedule Heart and Vascular patients for full 60 day certification period Initial visit Review Open Heart Surgery Discharge Instructions (Sternal precautions, Activity, Elastic hose, Incision care, Driving, Incentive spirometry, Smoking, Rheems, Work and other) Need Betadine to paint incision Medication reconciliation Importance of follow up care/ check on appointments Make calendar record temperature daily When to call [facility] at Home nurse, review instructions, phone list Incentive Spirometry, demonstration Visit 1- Begin discharge instruction for patient family and/ or caregiver using teach back method- Signs and symptoms of infection Disease characteristics Medicines and side effects Foods and nutrition/ appetite Infection control/ hand washing/ hygiene Visit 2- Continue teaching Discharge instructions- include additional information on smoking cessation , sternal dressing (sternal vac) Visit 3- Continue teaching- Cough and deep breathing, incision monitoring. Choose my plate Visit 4- Continue teaching- Discuss limitations Discuss how they are feeling Discuss progress toward goals Remaining visits- continue teaching and monitoring For any questions please call : Monday 8am-5pm Heart & Vascular Surgery Office ( Dr. Carrasquillo & Dr. Urrutia), After Hours / Nights (5pm -8am) Weekends and Holidays Please call [facility] Cardiac Intermediate Care Unit (CIC) Charge Nurse PREVENA Single Use Negative Wound Therapy System Caregiver Instruction Sheet 1. A Prevena dressing system was applied to the chest incision during surgery , to promote wound healing. It works via a suction device (negative pressure wound therapy) to remove low to moderate levels of exudate (drainage) and infectious materials. We recommend that the device stay in place for up to seven days, from day of surgery. 2. Day of Surgery___/ Day of Removal ___09/10/18 3. The dressing should only be removed by a health pet care attendant. Please arrange removal of device to coincide with Home Health visit and or with Nursing staff at Rehab 4. If skin reddening or irritation of skin occurs, or excessive drainage, please notify the Cardiovascular Surgeons office at [phone]. 5. Light showering is permissible; however the pump should be disconnected and placed in safe location, where it will not get wet. The dressing should not be exposed to direct spray or submerged in water. No bath tub / shower only. Ensure the end of the tubing attached to the dressing is facing down so that water does not enter the top of the tube. 6. To remove Prevena dressing: press purple button to turn off device / remove the suction. Then disconnect the tubing from the pump. The fixation strips should be stretched away from the skin and the dressing lifted at one corner and peeled back until it has been fully removed. 7. After removal, it is ok to shower daily using liquid dial soap and clean wash cloth, rinse and pat dry, and leave incision open to air dry. For any concerns regarding Prevena dressing, and or wounds, please contact Queta Arredondo, patient navigator at [phone] or notify the Cardiovascular Surgeons office at [phone]. Incentive spirometry Q1 hr x 10, while awake, also use acapella device hourly whole awake Sternal Breast Bone Precautions: NO pushing or pulling, ( pt must use sternal pillow to support chest with all activities and with coughing ( takes up to 3 months breast bone to heal ) Daily incision care: ok to shower daily, no tub bath. Wash all incisions with liquid dial soap, clean wash cloth to each site, rinse and pat dry. Observe for any signs of infection, such as drainage which is dark yellow, horton, green or foul smelling. Immediately report to the surgeon any drainage from the chest incision, or legs, and for any abnormal drainage from the chest tube sites. Notify surgeon if any temp >101.5 degrees F. When specialty dressing removed/ or if you do not have one, continue to shower daily as above, then rinse and pat incision dry and paint with betadine daily x 5 days. Allow steri strips to fall off if you have any. Avoid lotions, creams, salves, oils, etc. for the first month Please see attached forms for additional instructions regarding post Open Heart specialty wound vacuum dressings. ROSALIA or Prevena , Dressing to be removed by Nursing staff on __09/10/18 F/U appointment: as per DC instructions: PCP in 2 weeks, CV surgeon 2 weeks, Machine Room Operator 3-4 weeks For any questions regarding incisions/ dressing / meds / post op care or above Symptoms, Monday 8am-5pm Heart & Vascular Surgery Office ( Dr. Carrasquillo & Dr. Urrutia), After Hours / Nights (5pm -8am) Weekends and Holidays Please call [facility] Cardiac Intermediate Care Unit (CIC) Charge Nurse - Case Management Consult Case Management Consult-Home Health: Yes - Certification I have seen patient Brennan Stearns on 09/03/18. My clinical findings support the need for the requested home health care services because: Deconditioned with increased weakness I certify that my clinical findings support that this patient is homebound because: Post-op weakness
[2018-09-03] MEDS ORDERED: Protamine Sulfate Inj 250 MG/25 ML Vial ONE (11:40)
[2018-09-03] MEDS ORDERED: Post-op Orders (for Pharmacy) OTHER STA (12:35)
[2018-09-03] MEDS ORDERED: Calcium Chloride Inj 1 GM/10 ML Syringe IV.PUSH PRN (12:35)
[2018-09-03] MEDS ORDERED: Magnesium Sulfate Inj 2 GM in Sodium Chlor 0.9% Inj 96 ML IV.SIG PRN ×4 (12:35)
[2018-09-03] MEDS ORDERED: Potassium Chlor 20 mEq Premix 20 MEQ/100 ML PIGGYBACK IV.SIG PRN ×3 (12:35)
[2018-09-03] MEDS ORDERED: Acetaminophen 650 MG Supp RECTAL PRN (12:35)
[2018-09-03] MEDS ORDERED: Metoprolol Inj 5 MG/5 ML Vial IV.PUSH PRN (12:35)
[2018-09-03] MEDS ORDERED: Morphine Sulfate Inj 2 MG/ML Vial IV.PUSH PRN (12:35)
[2018-09-03] MEDS ORDERED: RESP: Racemic Epinephrine 2.25% 0.5 ML Neb NEB PRN (12:35)
[2018-09-03] MEDS ORDERED: Dexmedetomidine Inj 200 MCG in Sodium Chlor 0.9% Inj 48 ML IV.CONT PRN ×2 (12:35→14:23)
--- NOTE | 2018-09-03 12:45 | P.OP ---
Date of procedure: 09/03/18 Anesthesia: VICENTAA Surgeon: Negrito Carrasquillo MD Operation and Findings: PREOPERATIVE DIAGNOSES 1. Severe Aortic Stenosis. 2. Saccular Ascending Aortic Aneurysm 3. Bicuspid Aortic Valve POSTOPERATIVE DIAGNOSES Same SURGICAL PROCEDURE 1. Aortic Valve Replacement with a 25 mm Medtronic Mosaic Cinch Tissue valve 2. 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 SLIP TENDER HOOD Wright ANESTHESIA General endotracheal. ELECTION CLERK Colin Borjas CRNA, Anahy Belle MD PREPARATION ChloraPrep. NEEDLE, SPONGE AND INSTRUMENT COUNT Correct. DRAINS One 32-Belgian mediastinal tubes. COMPLICATIONS None. INDICATIONS The patient is a 53-year-old gentleman with severe aortic stenosis, presenting for surgical correction of the above pathology. DESCRIPTION OF PROCEDURE The patient was brought to the operating room and placed supine on the OR table. Following the induction of adequate general endotracheal anesthesia and placement of appropriate monitoring devices, the patient was then prepped and draped in the standard sterile fashion. Intra-operative TRISTEN did reveal saccular aneurysm of the ascending aorta to 5 cm with normalization above and below the area of concern. Median sternotomy was performed, the pericardium was divided in the midline and the cradle created. The patient was systemically heparinized and anticoagulation monitored by serial ACT measurements. Then 2 pursestring sutures of 2-0 Ethibond were placed on the aorta proximal to the takeoff of the innominate artery, another was placed in the right atrial appendage. At this point, aortic and 2-stage venous cannulae were introduced and attached to the arterial and venous components of the bypass circuit respectively. Antegrade cardioplegia cannula and a left ventricular vent, through the right superior pulmonary vein, were also placed. The patient was placed on cardiopulmonary bypass and core cooling initiated to a temperature of 32 degrees centigrade. The crossclamp was applied and 3 L of cardioplegia solution (Halfway HTK) given in an antegrade fashion in addition to topical cooling with slushed saline. Upon achieving adequate diastolic arrest of the heart a transverse aortotomy was performed. The aortic valve was then excised. The valve was very heavily calcified with the calcific process extending onto the anterior leaflet of the Mitral valve. Complete circumferential decalcification was performed and care was taken to aspirate and remove all particulate matter. Horizontal mattress sutures of interrupted 2-0 Ethibond were placed on the aortic annulus with pledgets on the ventricular side. After adequate sizing, a 25 mm Medtronic Mosaic tissue valve was brought in the surgical field and the sutures passed through the skirt. The valve was seated using Cor-knots. This appeared to be a good fit. The saccular motion of the ascending aorta was then excised, and due to the redundancy of ascending aorta primary repair was performed. Gradual rewarming was initiated and the aorta closed in 2 layers. This was with 4-0 Prolene; the 1st layer being horizontal mattress, the 2nd layer being running baseball stitch. The cross clamp was removed and upon achieving normothermic cardiac activity, transesophageal echocardiography revealed a well-situated aortic prosthesis with no evidence of perivalvular leak and no aortic stenosis or aortic regurgitation. Protamine was administered. Decannulation was performed and all sites were inspected for hemostasis. At this point the closure was undertaken. The pericardium was reapproximated in the midline. Two ventricular pacing wires and 1 chest tube placed, and the sternum was reapproximated using stainless steel sternal wires. The musculo-fascial layer was then closed in 3 layers. The patient tolerated the procedure well and was transferred to open heart recovery in stable condition.
[2018-09-03] MEDS ORDERED: Phenylephrine Inj 40 MG in Sodium Chlor 0.9% Inj 496 ML IV.CONT PRN (13:00)
[2018-09-03] MEDS ORDERED: fentaNYL Citrate Inj 250 MCG/5 ML Ampul ONE (13:25)
[2018-09-03] MEDS: Albumin Human 5% Inj 250 ML IV.SIG PRN ×2 (13:39→17:07)
--- NOTE | 2018-09-03 13:50 | XR ---
EXAM DATE: 09/03/2018 1:45 PM EST AGE/SEX: 53 years / Male INDICATIONS: Post op AVR. CLINICAL DATA: This is the patient's subsequent encounter. Patient reports that signs and symptoms h ave been present for 4 - 6 days and indicates a pain score of Nonresponsive. MEDICAL/SURGICAL HISTORY: Hypertension. None. COMPARISON: [facility] [place] CHEST 2V PA&LAT, 08/30/2018. . FINDINGS: The heart is enlarged. Median sternotomy wires are noted status post cardiac surgery. An endotracheal tube has its tip 5 cm above the mally. A nasogastric tube has tip below diaphragm. A right internal jugular central line has its tip in the right atrium. Mediastinal drain is noted. Moderate pulmonary vascular congestion is noted. CONCLUSION: 1. Moderate pulmonary vascular congestion. 2. Cardiomegaly. 3. Multiple tubes and lines are in good positions. Electronically signed by: Casa Srivastava MD Board Certified Radiologist 09/03/2018 1:48 PM EST
[2018-09-03] MEDS ORDERED: Insulin Regular (For Infusion) 100 UNIT in Sodium Chlor 0.9% Inj 99 ML IV.CONT PRN (14:00)
[2018-09-03] MEDS: Calcium Chloride Inj 1 GM in Sodium Chlor 0.9% Inj 100 ML IV.SIG PRN ×2 (14:02→20:16)
[2018-09-03] MEDS: fentaNYL Citrate Inj 100 MCG/2 ML Ampul IV.PUSH PRN ×6 (16:00→22:10)
[2018-09-03] MEDS: ceFAZolin 2 GM Premix Inj 2 GM/50 ML PIGGYBACK IV.SIG SCH (16:27)
--- NOTE | 2018-09-03 17:02 | P.CONCC ---
History of Present Illness Service: Critical care medicine Consult date: 09/03/18 Requesting Physician: Negrito Carrasquillo Reason for Consult: Critical care Primary Care Provider: UNKNOWN Chief Complaint: SOB, History of Present Illness: 53-year-old male with recent diagnosis of severe aortic stenosis who underwent aortic valve replacement with porcine aortic valve and aortic aneurysm repair by Dr. jewell, under geta, tolerated procedure well was subsequently transferred to CV ICU and extubated. He was on Huan-Synephrine/Epinephrine drip for hypotension postoperatively. Patient tolerated weaning trial and was extubated and requiring 10 L facemask O2 post extubation. Critical care consult was requested by Dr. Negrito Carrasquillo. When I evaluated the patient in CVICU he was resting in bed on facemask O2, awake and alert, following commands. Review of Systems unobtainable due to mental status PMFSH - History History Provided By: Patient - Medical History Medical History: Medical History (Last Reviewed 08/30/18 @ 11:32 by Altagracia Bowman RN) Cigarette smoker within last 12 months HTN (hypertension) Hyperlipemia Marijuana smoker Metal foreign body in hand Varicose veins of lower extremity - Tobacco History Second Hand Smoke Exposure: No Tobacco Use In Past 30 Days: Yes Smoking Status: Former smoker Tobacco Type: Cigarettes - Alcohol History How Often Do You Have a Drink Containing Alcohol: Monthly or less - Substance Use History Substance History: Active Abuse - Immunization History Tetanus Immunization: <5 Years Hx Influenza Vaccine This Season: No Medications and Allergies Active Medications: Active Medications Acetaminophen (Tylenol) 650 mg PO Q4H PRN PRN Reason: Temp > 100.4 Acetaminophen (Tylenol Supp) 650 mg RECTAL Q4H PRN PRN Reason: FEVER > 101 F Hydrocodone Bitart/Acetaminophen ([place] 5/325) 1 tab PO Q3H PRN PRN Reason: PAIN SCALE 1 TO 5 Hydrocodone Bitart/Acetaminophen ([place] 5/325) 2 tab PO Q3H PRN PRN Reason: PAIN SCALE 6 TO 10 Al Hydroxide/Mg Hydroxide (Milk Of Magnesia Liq) 30 ml PO Q12H PRN PRN Reason: Mild Constipation Albuterol (Duoneb Neb (Prn)) 1 ampul NEB Q2HR NEB PRN PRN Reason: WHEEZING Albuterol (Duoneb Neb (Shria)) 1 ampul NEB Q6HR NEB SHIRA Last Admin: 09/03/18 15:47 Dose: 1 ampul Alprazolam (Xanax) 0.5 mg PO Q6H PRN PRN Reason: ANXIETY AND/OR AGITATION Last Admin: 09/02/18 08:46 Dose: 0.5 mg Amiodarone HCl (Cordarone) 200 mg PO Q12HR ON LICENSE OF [facility] Aspirin (Aspirin Chew) 81 mg PO DAILY ON LICENSE OF [facility] Calcium Chloride (Calcium Chloride Inj) 0.5 gm IV.PUSH UNSCH PRN PRN Reason: SEE LABEL COMMENTS Carvedilol (Coreg) 12.5 mg PO BID ON LICENSE OF [facility] Last Admin: 09/03/18 10:18 Dose: Not Given Chlorhexidine Gluconate (Hibiclens 4% Topical) 1 applicatio TOPICAL SHERIFF'S OFFICER ON LICENSE OF [facility] Stop: 09/05/18 14:12 Clopidogrel Bisulfate (Plavix) 75 mg PO DAILY ON LICENSE OF [facility] Sodium Chloride 500 ml/ (Cefazolin Sodium 500 mg) 0 ml IRRIGATION SHERIFF'S OFFICER ON LICENSE OF [facility] Stop: 09/05/18 14:13 Last Admin: 09/03/18 08:52 Dose: 1 bag Dextrose (D50w Vial) 50 ml IV.PUSH UNSCH PRN PRN Reason: PER HYPOGLYCEMIA PROTOCOL Epinephrine (Racepinephrine 2.25% Neb) 0.5 ml NEB DAILY NEB PRN PRN Reason: STRIDOR Fentanyl Citrate (Fentanyl Inj) 25 mcg IV.PUSH Q1H PRN PRN Reason: BREAKTHROUGH PAIN Last Admin: 09/03/18 16:00 Dose: 25 mcg Sodium Chloride (Ns Inj) 500 mls @ 30 mls/hr IV.SIG .Q10H ON LICENSE OF [facility] Lactated Ringer's (Lr 1000 Ml Inj) 1,000 mls @ 30 mls/hr IV.SIG .Q24H ON LICENSE OF [facility] Stop: 09/04/18 01:29 Acetaminophen (Ofirmev Inj) 1,000 mg in 100 mls @ 400 mls/hr IV.SIG Q6H ON LICENSE OF [facility] Stop: 09/04/18 07:14 Last Infusion: 09/03/18 14:24 Dose: Infused Albumin Human (Buminate 5% Inj) 250 mls @ 250 mls/hr IV.SIG UNSCH PRN PRN Reason: SEE LABEL COMMENTS Last Infusion: 09/03/18 14:24 Dose: Infused Calcium Chloride 1 gm/ Sodium (Chloride) 110 mls @ 100 mls/hr IV.SIG PRN PRN PRN Reason: SEE LABEL COMMENTS Last Infusion: 09/03/18 15:34 Dose: Infused Cefazolin Sodium/Dextrose (Ancef 2 Gm Premix Inj) 2 gm in 50 mls @ 200 mls/hr IV.SIG Q8H SHIRA Stop: 09/05/18 00:14 Last Admin: 09/03/18 16:27 Dose: 200 mls/hr Insulin Human Regular 100 unit (/ Sodium Chloride) 100 mls @ 3 mls/hr IV.CONT TITRATE PRN; Protocol PRN Reason: See Protocol Last Titration: 09/03/18 16:00 Dose: 6 units/hr, 6 mls/hr Lactated Ringer's (Lr 1000 Ml Inj) 500 mls @ 500 mls/hr IV.SIG .Q1H PRN PRN Reason: SEE LABEL COMMENTS Magnesium Sulfate 2 gm/ Sodium (Chloride) 100 mls @ 50 mls/hr IV.SIG PRN PRN PRN Reason: SEE LABEL COMMENTS Phenylephrine HCl 40 mg/ (Sodium Chloride) 500 mls @ 52.5 mls/hr IV.CONT TITRATE PRN; Protocol PRN Reason: See Protocol Last Titration: 09/03/18 16:00 Dose: 0 mcg/min, 0 mls/hr Potassium Chloride (Kcl 20 Meq Premix Inj) 20 meq in 100 mls @ 50 mls/hr IV.SIG PRN PRN PRN Reason: SEE LABEL COMMENTS Potassium Chloride (Kcl 20 Meq Premix Inj) 20 meq in 100 mls @ 50 mls/hr IV.SIG PRN PRN PRN Reason: SEE LABEL COMMENTS Potassium Chloride (Kcl 20 Meq Premix Inj) 20 meq in 100 mls @ 50 mls/hr IV.SIG PRN PRN PRN Reason: SEE LABEL COMMENTS Magnesium Sulfate 2 gm/ Sodium (Chloride) 100 mls @ 50 mls/hr IV.SIG PRN PRN PRN Reason: SEE LABEL COMMENTS Epinephrine HCl 2 mg/ Dextrose 250 mls @ 22.5 mls/hr IV.CONT TITRATE PRN; Protocol PRN Reason: Per Protocol Last Titration: 09/03/18 15:34 Dose: 3 mcg/min, 22.5 mls/hr Norepinephrine Bitartrate (Levophed-Dextrose 4 Mg/250 Ml Drip) 4 mg in 250 mls @ 7.5 mls/hr IV.SIG TITRATE PRN; Protocol PRN Reason: Per Protocol Dexmedetomidine HCl 200 mcg/ (Sodium Chloride) 50 mls @ 17.68 mls/hr IV.CONT TITRATE PRN; Protocol PRN Reason: Per Protocol Last Titration: 09/03/18 16:00 Dose: 0.1 mcg/kg/hr, 3.53 mls/hr Ketorolac Tromethamine (Toradol Inj) 15 mg IV.PUSH Q6H PRN PRN Reason: SEE LABEL COMMENTS Stop: 09/05/18 12:34 Lisinopril (Prinivil) 10 mg PO DAILY ON LICENSE OF [facility] Last Admin: 09/03/18 10:18 Dose: Not Given Meperidine HCl (Demerol Inj) 12.5 mg IV.PUSH Q4H PRN PRN Reason: SHIVERING Metoprolol Tartrate (Lopressor) 12.5 mg PO SHERIFF'S OFFICER ON LICENSE OF [facility] Stop: 09/05/18 14:13 Metoprolol Tartrate (Lopressor Inj) 2.5 mg IV.PUSH Q1H PRN PRN Reason: SEE LABEL COMMENTS Morphine Sulfate (Morphine Inj) 1 mg IV.PUSH Q10M PRN PRN Reason: PAIN SCALE 1 TO 5 Ondansetron HCl (Zofran Inj) 4 mg IV.PUSH Q6H PRN PRN Reason: NAUSEA OR VOMITING Pantoprazole Sodium (Protonix) 40 mg PO DAILY@06 ON LICENSE OF [facility] Phenylephrine HCl (Neosynephrine Inj) 0.1 mg IV.PUSH UNSCH PRN PRN Reason: SEE LABEL COMMENTS Potassium Chloride (K-Dur) 20 meq PO UNSCH PRN PRN Reason: SEE LABEL COMMENTS Potassium Chloride (K-Dur) 40 meq PO UNSCH PRN PRN Reason: SEE LABEL COMMENTS Senna/Docusate Sodium (April-Colace) 1 tab PO BID ON LICENSE OF [facility] Last Admin: 09/03/18 10:18 Dose: Not Given Sodium Bicarbonate (Sodium Bicarbonate 8.4% Inj) 50 meq IV.PUSH UNSCH PRN PRN Reason: SEE LABEL COMMENTS Sodium Bicarbonate (Sodium Bicarbonate 8.4% Inj) 100 meq IV.PUSH UNSCH PRN PRN Reason: SEE LABEL COMMENTS Sodium Chloride (Ns Flush) 2 ml IV.FLUSH BID ON LICENSE OF [facility] Last Admin: 09/03/18 10:18 Dose: Not Given Sodium Chloride (Ns Flush) 2 ml IV.FLUSH PRN PRN PRN Reason: FLUSH AFTER USING IV ACCESS Sodium Chloride (Ns Flush) 2 ml IV.FLUSH BID SHIRA Last Admin: 09/03/18 10:18 Dose: Not Given Sodium Chloride (Ns Flush) 2 ml IV.FLUSH PRN PRN PRN Reason: FLUSH AFTER USING IV ACCESS Terbutaline Sulfate (Brethine Inj) 1 mg SQ ONCE PRN PRN Reason: Extravasation Terbutaline Sulfate (Brethine Inj) 1 mg SQ UNSCH PRN PRN Reason: For Extravasation Terbutaline Sulfate (Brethine Inj) 1 mg SQ UNSCH PRN PRN Reason: For Extravasation Allergies Allergy/AdvReac Type Severity Reaction Status Date / Time guaifenesin [From Mucinex] Allergy Agitation Verified 08/30/18 07:22 Home Medications Medication Instructions Recorded Confirmed Type alprazolam 1 mg PO HS 08/29/18 08/30/18 History carvedilol 12.5 mg PO BID 08/29/18 08/30/18 History ergocalciferol (vitamin D2) 50,000 PO WEEKLY 08/29/18 History lisinopril 10 mg PO DAILY 08/29/18 08/30/18 History Physical Exam Vital signs: Vital Signs 09/02/18 17:00 09/02/18 17:19 09/02/18 19:00 Temperature Pulse Rate 79 79 68 Respiratory Rate Blood Pressure Pulse Oximetry 09/02/18 19:45 09/02/18 20:00 09/02/18 21:00 Temperature 98 F Pulse Rate 68 72 72 Respiratory Rate 22 Blood Pressure 140/80 Pulse Oximetry 96 09/02/18 22:00 09/02/18 23:00 09/03/18 00:00 Temperature 98 F Pulse Rate 75 64 64 Respiratory Rate 18 Blood Pressure 115/70 Pulse Oximetry 96 09/03/18 01:00 09/03/18 02:00 09/03/18 03:00 Temperature Pulse Rate 62 62 66 Respiratory Rate Blood Pressure Pulse Oximetry 09/03/18 04:00 09/03/18 05:00 09/03/18 06:00 Temperature 97.9 F Pulse Rate 64 64 64 Respiratory Rate 18 Blood Pressure 107/56 L Pulse Oximetry 95 09/03/18 06:10 09/03/18 13:00 09/03/18 13:15 Temperature 98.1 F 97.4 F L Pulse Rate 64 62 65 Respiratory Rate 20 12 Blood Pressure 110/76 89/45 L Pulse Oximetry 98 88 L 09/03/18 13:20 09/03/18 13:45 09/03/18 15:00 Temperature 97 F L 97.5 F L Pulse Rate 56 L 62 Respiratory Rate 14 12 22 Blood Pressure 103/71 128/80 Pulse Oximetry 90 L 98 98 09/03/18 15:51 09/03/18 15:55 09/03/18 16:00 Temperature Pulse Rate 62 Respiratory Rate 24 Blood Pressure Pulse Oximetry 93 L 92 L 09/03/18 16:27 Temperature Pulse Rate Respiratory Rate 16 Blood Pressure Pulse Oximetry Intake & Output 09/02/18 09/03/18 09/03/18 18:59 06:59 18:59 Intake Total 850 / 850 420 / 420 6155 / 6155 Output Total 2550 / 2550 1949 / 1950 700 / 700 Balance -1700 / -1700 -1530 / -1530 5455 / 5455 Weight 141.5 kg Intake: IV 655 / 655 Ofirmev Inj 1,000 mg In 100 ml 100 / 100 @ 400 mls/hr IV.SIG Q6H SHIRA Rx# :[id number] Flexbumin 25% Inj 50 ML @ 0 mls 50 / 50 /hr IV.SIG .STK-MED ONE Rx#: [id number] Buminate 5% Inj 250 ML @ 250 250 / 250 mls/hr IV.SIG UNSCH PRN Rx#: [id number] Calcium Chloride Inj 1 GM In NS 105 / 105 Inj 100 ML @ 100 mls/hr IV.SIG PRN PRN Rx#:[id number] Ancef 1 GM Premix Inj 3 gm In 150 / 150 150 ml @ 0 mls/hr IV.SIG .STK- MED ONE Rx#:[id number] Oral 850 / 850 420 / 420 Anesthesia Amount 3500 / 3500 Cell Saver Amount 1999 / 1999 Output: Urine 2550 / 2550 1949 / 1949 Urine Amount (Catheter) 700 / 700 Indwelling Temp Sensing 700 / 700 Catheter Other: Date of Last Bowel Movement 08/31/18 Narrative: HEENT/Neuro: Pallor present, no icterus, tongue moist, VARSHA, Awake alert oriented 3, nonfocal grossly, moving all 4 extremities Neck: Right IJ central line in place Chest/pulmonary: Good air entry bilaterally though decreased at bases, scattered rhonchi, no wheezing Cardiovascular: S1-S2 regular no gallop or murmur, Prevena dressing over sternotomy site, single chest tube in place with minimal bloody drainage-190 cc so far at the time of my evaluation GI/abdomen: Soft, nontender, bowel sounds present Extremities: Warm bilaterally, no edema - Urinary Catheter Management Indwelling Temp Sensing Catheter Cath placed during this visit: yes Reason for continuing: Hourly intake/output Insertion date: 09/03/18 Insertion time: 07:40 Assessment and Plan - Assessment and Plan Plan: 53-year-old male with: Severe aortic stenosis/a sending aortic aneurysm status post aortic valve replacement/aortic aneurysm repair Postop respiratory failure Hypotension Acute blood loss anemia Hyperlipidemia History of hypertension Plan: -Follow neuro status, pain medications as needed -Continue hemodynamic monitoring, epinephrine GTT for hypotension, titrate per CT surgery. Follow chest tube output -Supplemental O2, bronchodilators as needed, incentive spirometry, pulmonary toilet. Personally reviewed postop chest x-ray. -Advance p.o. when okay with CT surgery -Strict intake output, monitor and replete electrolytes, follow BUN/creatinine. -Received a fluid bolus and IV albumin earlier. -Follow postop labs GI prophylaxis/DVT prophylaxis Critical care will continue to follow.
[2018-09-03] MEDS: Ketorolac Inj 30 MG/ML (IVP) Vial IV.PUSH PRN (19:16)
[2018-09-03] MEDS: Amiodarone 200 MG Tablet PO SCH (21:08)
[2018-09-04] MEDS: fentaNYL Citrate Inj 100 MCG/2 ML Ampul IV.PUSH PRN ×3 (00:19→04:08)
[2018-09-04] MEDS: ceFAZolin 2 GM Premix Inj 2 GM/50 ML PIGGYBACK IV.SIG SCH ×3 (00:21→16:00)
[2018-09-04 04:30] LABS: Hematocrit 34.8 % (39.0-51.0); Hemoglobin 11.4 gm/dL (13.0-17.0); Mean Corpuscular HGB Conc 32.7 % (32.0-36.0); Mean Corpuscular Hemoglobin 26.9 pg (27.0-34.0); Mean Corpuscular Volume 82.3 fL (80.0-100.0); Mean Platelet Volume 6.8 fL (7.0-11.0); Platelet Count 193 th/mm3 (150-450); Red Blood Count 4.24 mil/mm3 (4.50-5.90); Red Cell Distribution Width 15.9 % (11.6-17.2)
[2018-09-04 04:53] LABS: Anion Gap 9 meq/L (5-15); Blood Urea Nitrogen 16 mg/dL (7-18); Calcium 8.1 mg/dL (8.5-10.1); Carbon Dioxide 28.3 meq/L (21.0-32.0); Chloride 102 meq/L (98-107); Glomerular Filtration Rate Greater Than 89 mL/min (>89); Glucose,Random 111 mg/dL (74-106); Magnesium 2.1 mg/dL (1.5-2.5); Potassium 4.3 meq/L (3.5-5.1); Sodium 139 meq/L (136-145)
--- NOTE | 2018-09-04 05:10 | XR ---
EXAM DATE: 09/04/2018 4:25 AM EST AGE/SEX: 53 years / Male INDICATIONS: Shortness of breath, possible pneumothorax. CLINICAL DATA: This is the patient's subsequent encounter. Patient reports that signs and symptoms h ave been present for 4 - 6 days and indicates a pain score of 8/10. MEDICAL/SURGICAL HISTORY: Hypertension. . Aortic valve replacement. COMPARISON: [facility], CHEST 1V SINGLE AP, 09/03/2018. . FINDINGS: Patient has been extubated and NGT removed. Persistent mediastinal drain and right IJ central line. C ardiac silhouette remains enlarged with indistinct central pulmonary vascularity and perihilar inters titial prominence. No significant pneumothorax. Remainder of the exam is unchanged. CONCLUSION: 1. Patient has been extubated with NGT removed. 2. Cardiomegaly with persistent pulmonary vascular congestion. Electronically signed by: Eric Ayers MD Board Certified Radiologist 09/04/2018 5:08 AM ANGELICA Jaramillo
[2018-09-04] MEDS: Amiodarone 200 MG Tablet PO SCH ×2 (08:41→20:45)
[2018-09-04] MEDS: Ketorolac Inj 30 MG/ML (IVP) Vial IV.PUSH PRN ×2 (08:42→20:46)
[2018-09-04] MEDS: Carvedilol 12.5 MG Tablet PO SCH ×2 (08:44→20:45)
[2018-09-04] MEDS: Senna/Docusate Sodium 8.6/50 MG Tablet PO SCH ×2 (08:53→20:44)
[2018-09-04] MEDS ORDERED: Bisacodyl 10 MG Supp RECTAL PRN (10:37)
[2018-09-04] MEDS ORDERED: Sod Phosphate/Sod Biphosphate (Adult) Enema 133 ML Bottle RECTAL PRN (10:37)
--- NOTE | 2018-09-04 10:37 | P.PNCV ---
- Note Subjective/Hospital Course: 53-year-old male transferred from [facility], patient of Dr. Juancarlos Brennan in [place] and Dr. Casa Miranda. Transferred post-heart catheterization for severe aortic stenosis ( aortic valve replacement). 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 Recently was in [place] and had an episode of congestive heart failure where he was seen and evaluated and had an echocardiogram, which showed a normal ejection fraction 68%, severe aortic stenosis. Valve area by heart catheterization showed 0.63, mean gradient of 82. Underwent further evaluation with the cardiac catheterization by Dr. Miranda, , normal coronary arteries, preserved LV systolic function, severe with a valve area of 0.6 cm2. Hemodynamics showed a pulmonary capillary wedge of 25, cardiac output of 7.2. The patient has had progressive shortness of breath, increasing over the past year. He has known about the murmur for about 20 years, but did not have it worked up. He recently was treated for possible pneumonia back in June, was treated with antibiotics. While he was recently overseas, they placed him on diuretics. PAST MEDICAL HISTORY: Includes severe aortic stenosis, severe obesity with a BMI of 41, hypertension. PAST SURGICAL HISTORY: left shoulder cyst removed, some type of a hygroma, where he has a fairly large incision under the left axilla area, age 17months, vein stripping to both lower legs 08/31 pt denies any chest pain or SOB Carotid US ok for surgery on Saturday 09/01 Doing well Clinically and hemodynamically stable OR 09/02 No issues overnight Planned OR tomorrow morning 09/03 SURGICAL PROCEDURE 1. Aortic Valve Replacement with a 25 mm Medtronic Mosaic Cinch Tissue valve 2. 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 09/04 Doing well Hemato-medically and clinically stable Off of all drips Transfer to [facility]PCU today Maintain chest tubes to drainage Gentle diuresis and beta-priya Objective: Vital Signs - 24 hr 09/03/18 13:00 09/03/18 13:15 09/03/18 13:20 Temperature 97.4 F L Pulse Rate 62 65 Respiratory Rate 12 14 Blood Pressure 89/45 L Pulse Oximetry 88 L 90 L 09/03/18 13:45 09/03/18 15:00 09/03/18 15:51 Temperature 97 F L 97.5 F L Pulse Rate 56 L 62 62 Respiratory Rate 12 22 24 Blood Pressure 103/71 128/80 Pulse Oximetry 98 98 09/03/18 15:55 09/03/18 16:00 09/03/18 16:27 Temperature Pulse Rate Respiratory Rate 16 Blood Pressure Pulse Oximetry 93 L 92 L 09/03/18 17:44 09/03/18 19:00 09/03/18 19:10 Temperature 98.4 F Pulse Rate 65 64 Respiratory Rate 15 22 Blood Pressure 132/83 Pulse Oximetry 98 09/03/18 19:45 09/03/18 19:46 09/03/18 20:20 Temperature Pulse Rate 63 Respiratory Rate 22 22 18 Blood Pressure Pulse Oximetry 96 09/03/18 21:14 09/03/18 21:35 09/03/18 23:00 Temperature Pulse Rate 65 Respiratory Rate 22 22 Blood Pressure Pulse Oximetry 09/03/18 23:14 09/03/18 23:17 09/04/18 03:00 Temperature 97.5 F L Pulse Rate 62 65 Respiratory Rate 22 22 Blood Pressure 110/64 Pulse Oximetry 94 L 94 L 94 L 09/04/18 03:04 09/04/18 03:22 09/04/18 07:00 Temperature 97.7 F 98.4 F Pulse Rate 64 64 76 Respiratory Rate 20 16 20 Blood Pressure 117/67 132/82 Pulse Oximetry 94 L 94 L 09/04/18 09:00 09/04/18 09:01 Temperature Pulse Rate 79 Respiratory Rate 25 H Blood Pressure Pulse Oximetry 94 L Labs: Laboratory Results - last 12 hr 09/03/18 09/04/18 09/04/18 23:10 01:18 02:53 WBC RBC Hgb Hct MCV MCH MCHC RDW Plt Count MPV Sodium Potassium Chloride Carbon Dioxide Anion Gap BUN Creatinine Estimated GFR POC Glucose 117 H 120 H 104 Random Glucose Calcium Magnesium 09/04/18 09/04/18 09/04/18 04:08 04:09 04:09 WBC 13.0 H D RBC 4.24 L Hgb 11.4 L D Hct 34.8 L MCV 82.3 MCH 26.9 L MCHC 32.7 RDW 15.9 Plt Count 193 D MPV 6.8 L Sodium 139 Potassium 4.3 Chloride 102 Carbon Dioxide 28.3 Anion Gap 9 BUN 16 Creatinine 0.77 Estimated GFR Greater than 89 POC Glucose 114 H Random Glucose 111 H Calcium 8.1 L Magnesium 2.1 09/04/18 09/04/18 09/04/18 06:09 08:12 10:19 WBC RBC Hgb Hct MCV MCH MCHC RDW Plt Count MPV Sodium Potassium Chloride Carbon Dioxide Anion Gap BUN Creatinine Estimated GFR POC Glucose 101 109 115 H Random Glucose Calcium Magnesium Result Diagrams: 09/04/18 04:09 09/04/18 04:09 - Plan (2) Aortic stenosis Plan: for surgery on Monday
[2018-09-04] MEDS: Lisinopril 10 MG Tablet PO SCH (10:57)
[2018-09-04] MEDS: Insulin NovoLOG Aspart Correctional Sugar Inj SQ SCH ×2 (14:00→18:14)
--- NOTE | 2018-09-04 14:25 | ECG ---
Date Performed: 09/04/2018 Time Performed: 05:06:44 PTAGE: 53 years EKG: CONSIDER ACUTE ST ELEVATION AK Sinus rhythm with borderline 1st degree A-V block ANTERIOR INFARCT - POSSIBLY ACUTE LVH with secondary re polarization abnormality Lateral ST elevation, CONSIDER ACUTE INFARCT Abnormal ECG Compared to PREVIOUS TRACING , there is fairly diffuse ST elevations inferiorly and anteriorly which are new from the prior tracing. Consider an acute infarct vs pericarditis. Clinical correlation is re quired. PREVIOUS TRACIN08/30/2018 11.13 DOCTOR: Juan Child Interpretating Date/Time 09/04/2018 14:23:40
[2018-09-04] MEDS: Furosemide 40 MG Tablet PO SCH (18:14)
[2018-09-04] MEDS: Docusate Sodium 100 MG Capsule PO SCH (20:44)
[2018-09-05] MEDS: Insulin NovoLOG Aspart Correctional Sugar Inj SQ SCH ×6 (00:11→21:37)
[2018-09-05] MEDS: ceFAZolin 2 GM Premix Inj 2 GM/50 ML PIGGYBACK IV.SIG SCH (01:17)
[2018-09-05] MEDS: Ketorolac Inj 30 MG/ML (IVP) Vial IV.PUSH PRN (05:06)
[2018-09-05 05:28] LABS: Baso # (Auto) 0.1 th/mm3 (0.0-0.2); Baso % (Auto) 0.6 % (0.0-2.0); Eos # (Auto) 0.2 th/mm3 (0.0-0.4); Eos % (Auto) 2.4 % (0.0-4.0); Hematocrit 32.8 % (39.0-51.0); Hemoglobin 10.7 gm/dL (13.0-17.0); Lymph # (Auto) 1.9 th/mm3 (1.0-4.8); Lymph % (Auto) 18.8 % (9.0-44.0); Mean Corpuscular HGB Conc 32.5 % (32.0-36.0); Mean Corpuscular Hemoglobin 27.1 pg (27.0-34.0); Mean Corpuscular Volume 83.6 fL (80.0-100.0); Mean Platelet Volume 6.9 fL (7.0-11.0); Mono # (Auto) 1.1 th/mm3 (0.0-0.9); Mono % (Auto) 10.6 % (0.0-8.0); Neut % (Auto) 67.6 % (16.0-70.0); Platelet Count 171 th/mm3 (150-450); Red Blood Count 3.93 mil/mm3 (4.50-5.90); Red Cell Distribution Width 15.9 % (11.6-17.2); White Blood Count 10.3 th/mm3 (4.0-11.0)
[2018-09-05 05:47] LABS: Anion Gap 6 meq/L (5-15); Blood Urea Nitrogen 22 mg/dL (7-18); Carbon Dioxide 30.9 meq/L (21.0-32.0); Chloride 99 meq/L (98-107); Glomerular Filtration Rate Greater Than 89 mL/min (>89); Glucose,Random 132 mg/dL (74-106); Magnesium 2.1 mg/dL (1.5-2.5); Potassium 4.2 meq/L (3.5-5.1); Sodium 136 meq/L (136-145)
[2018-09-05] MEDS: Multivitamin/Minerals Therapeutic Tablet PO SCH (09:14)
[2018-09-05] MEDS: Carvedilol 12.5 MG Tablet PO SCH ×2 (09:14→21:36)
[2018-09-05] MEDS: Amiodarone 200 MG Tablet PO SCH ×2 (09:15→21:36)
[2018-09-05] MEDS: Docusate Sodium 100 MG Capsule PO SCH ×2 (09:15→21:35)
[2018-09-05] MEDS: Senna/Docusate Sodium 8.6/50 MG Tablet PO SCH ×2 (09:15→21:35)
[2018-09-05] MEDS: Polyethylene Glycol 3350 17 GM Packet PO SCH (09:16)
--- NOTE | 2018-09-05 10:53 | P.PNCV ---
- Note Subjective/Hospital Course: 53-year-old male transferred from [facility], patient of Dr. Juancarlos Brennan in [place] and Dr. Casa Miranda. Transferred post-heart catheterization for severe aortic stenosis ( aortic valve replacement). 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 Recently was in [place] and had an episode of congestive heart failure where he was seen and evaluated and had an echocardiogram, which showed a normal ejection fraction 68%, severe aortic stenosis. Valve area by heart catheterization showed 0.63, mean gradient of 82. Underwent further evaluation with the cardiac catheterization by Dr. Miranda, , normal coronary arteries, preserved LV systolic function, severe with a valve area of 0.6 cm2. Hemodynamics showed a pulmonary capillary wedge of 25, cardiac output of 7.2. The patient has had progressive shortness of breath, increasing over the past year. He has known about the murmur for about 20 years, but did not have it worked up. He recently was treated for possible pneumonia back in June, was treated with antibiotics. While he was recently overseas, they placed him on diuretics. PAST MEDICAL HISTORY: Includes severe aortic stenosis, severe obesity with a BMI of 41, hypertension. PAST SURGICAL HISTORY: left shoulder cyst removed, some type of a hygroma, where he has a fairly large incision under the left axilla area, age 19months, vein stripping to both lower legs 08/31 pt denies any chest pain or SOB Carotid US ok for surgery on Saturday 09/01 Doing well Clinically and hemodynamically stable OR 09/02 No issues overnight Planned OR tomorrow morning 09/03 SURGICAL PROCEDURE 1. Aortic Valve Replacement with a 25 mm Medtronic Mosaic Cinch Tissue valve 2. 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 09/04 Doing well Hemato-medically and clinically stable Off of all drips Transfer to [facility]PCU today Maintain chest tubes to drainage Gentle diuresis and beta-priya 09/05 painful, chest tube dc and v wire dc without difficulty continue IV diuresis add mucomyst to nebs x 48 hrs pulm toileting OOB ambulate Objective: Vital Signs - 24 hr 09/04/18 11:00 09/04/18 13:22 09/04/18 14:00 Temperature 98.9 F Pulse Rate 83 80 80 Respiratory Rate 20 22 Blood Pressure 129/71 Pulse Oximetry 92 L 09/04/18 14:17 09/04/18 15:00 09/04/18 16:00 Temperature 98.1 F Pulse Rate 78 83 90 Respiratory Rate 18 Blood Pressure 145/80 H Pulse Oximetry 95 95 09/04/18 19:00 09/04/18 20:00 09/04/18 21:00 Temperature 99 F Pulse Rate 88 86 84 Respiratory Rate 20 Blood Pressure 131/81 Pulse Oximetry 99 99 09/04/18 22:00 09/04/18 23:00 09/05/18 03:00 Temperature 98.8 F 98.8 F Pulse Rate 76 78 71 Respiratory Rate 18 16 Blood Pressure 122/65 134/83 Pulse Oximetry 96 98 09/05/18 07:00 09/05/18 07:30 Temperature Pulse Rate 72 Respiratory Rate 24 Blood Pressure Pulse Oximetry 98 GENERAL: prevena dressing to chest SKIN: Warm and dry. HEAD: Normocephalic. EYES: No scleral icterus. No injection or drainage. NECK: Supple, trachea midline. No JVD or lymphadenopathy. CARDIOVASCULAR: Regular rate and rhythm without murmurs, gallops, or rubs. mild lower ext edema RESPIRATORY: Breath sounds equal bilaterally. No accessory muscle use. coarse breath sounds / GASTROINTESTINAL: Abdomen soft, non-tender, nondistended. MUSCULOSKELETAL: No cyanosis, or edema. BACK: Nontender without obvious deformity. No CVA tenderness. Labs: Laboratory Results - last 12 hr 09/02/18 09/05/18 09/05/18 09:34 01:23 05:00 WBC 10.3 RBC 3.93 L Hgb 10.7 L Hct 32.8 L MCV 83.6 MCH 27.1 MCHC 32.5 RDW 15.9 Plt Count 171 MPV 6.9 L Neut % (Auto) 67.6 Lymph % (Auto) 18.8 [place] % (Auto) 10.6 H Eos % (Auto) 2.4 Baso % (Auto) 0.6 Neut # (Auto) 7.0 Lymph # (Auto) 1.9 [place] # (Auto) 1.1 H Eos # (Auto) 0.2 Baso # (Auto) 0.1 WBC Differential . Differential Comment Auto diff final Sodium Potassium Chloride Carbon Dioxide Anion Gap BUN Creatinine Estimated GFR POC Glucose 115 H Random Glucose Calcium Magnesium MTS Gel Crossmatch See Detail 09/05/18 09/05/18 05:00 07:54 WBC RBC Hgb Hct MCV MCH MCHC RDW Plt Count MPV Neut % (Auto) Lymph % (Auto) [place] % (Auto) Eos % (Auto) Baso % (Auto) Neut # (Auto) Lymph # (Auto) [place] # (Auto) Eos # (Auto) Baso # (Auto) WBC Differential Differential Comment Sodium 136 Potassium 4.2 Chloride 99 Carbon Dioxide 30.9 Anion Gap 6 BUN 22 H Creatinine 0.86 Estimated GFR Greater than 89 POC Glucose 186 H Random Glucose 132 H Calcium 8.0 L Magnesium 2.1 MTS Gel Crossmatch Result Diagrams: 09/05/18 05:00 09/05/18 05:00 - Plan (2) Aortic stenosis Plan: RESP: nebs, ezpap acapella add mucomyst CV: ASA, amiodarone gentle diuresis GI: motility meds prophy: BRE and protonix CM to eval for HHC
[2018-09-05] MEDS: Furosemide 40 MG Tablet PO SCH (18:15)
[2018-09-06] MEDS: Insulin NovoLOG Aspart Correctional Sugar Inj SQ SCH ×6 (02:06→21:14)
--- NOTE | 2018-09-06 04:27 | XR ---
EXAM DATE: 09/06/2018 4:17 AM EST AGE/SEX: 53 years / Male INDICATIONS: Shortness of breath. Evaluate for pneumothorax. CLINICAL DATA: This is the patient's subsequent encounter. Patient reports that signs and symptoms h ave been present for 4 - 6 days and indicates a pain score of 5/10. MEDICAL/SURGICAL HISTORY: Hypertension. . Aortic valve replacement. COMPARISON: C, CHEST 1V SINGLE AP, 09/04/2018. . FINDINGS: Stable right IJ central line. Cardiac silhouette is significantly enlarged with indistinct central pu lmonary vascularity. Diffuse interstitial prominence. Obscuration of the left hemidiaphragm. Remainde r of the exam is unchanged. CONCLUSION: 1. No pneumothorax. 2. Cardiomegaly with pulmonary vascular congestion. 3. Persistent left lower lobe airspace disease. Electronically signed by: Eric Ayers MD Board Certified Radiologist 09/06/2018 4:26 AM ANGELICA Jaramillo
[2018-09-06 05:22] LABS: Anion Gap 7 meq/L (5-15); Blood Urea Nitrogen 16 mg/dL (7-18); Calcium 8.1 mg/dL (8.5-10.1); Carbon Dioxide 32.2 meq/L (21.0-32.0); Chloride 96 meq/L (98-107); Glomerular Filtration Rate Greater Than 89 mL/min (>89); Glucose,Random 94 mg/dL (74-106); Magnesium 2.1 mg/dL (1.5-2.5); Potassium 4.3 meq/L (3.5-5.1); Sodium 135 meq/L (136-145)
[2018-09-06] MEDS: Polyethylene Glycol 3350 17 GM Packet PO SCH (08:30)
[2018-09-06] MEDS: Amiodarone 200 MG Tablet PO SCH ×2 (08:31→20:18)
[2018-09-06] MEDS: Docusate Sodium 100 MG Capsule PO SCH ×2 (08:32→20:17)
[2018-09-06] MEDS: Senna/Docusate Sodium 8.6/50 MG Tablet PO SCH ×2 (08:32→20:17)
[2018-09-06] MEDS: Multivitamin/Minerals Therapeutic Tablet PO SCH (08:32)
[2018-09-06] MEDS: Carvedilol 12.5 MG Tablet PO SCH ×2 (08:32→20:18)
--- NOTE | 2018-09-06 09:46 | P.PNCV ---
- Note Subjective/Hospital Course: 53-year-old male transferred from [facility], patient of Dr. Juancarlos Brennan in [place] and Dr. Casa Miranda. Transferred post-heart catheterization for severe aortic stenosis ( aortic valve replacement). 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 Recently was in [place] and had an episode of congestive heart failure where he was seen and evaluated and had an echocardiogram, which showed a normal ejection fraction 68%, severe aortic stenosis. Valve area by heart catheterization showed 0.63, mean gradient of 82. Underwent further evaluation with the cardiac catheterization by Dr. Miranda, , normal coronary arteries, preserved LV systolic function, severe with a valve area of 0.6 cm2. Hemodynamics showed a pulmonary capillary wedge of 25, cardiac output of 7.2. The patient has had progressive shortness of breath, increasing over the past year. He has known about the murmur for about 20 years, but did not have it worked up. He recently was treated for possible pneumonia back in June, was treated with antibiotics. While he was recently overseas, they placed him on diuretics. PAST MEDICAL HISTORY: Includes severe aortic stenosis, severe obesity with a BMI of 41, hypertension. PAST SURGICAL HISTORY: left shoulder cyst removed, some type of a hygroma, where he has a fairly large incision under the left axilla area, age 19months, vein stripping to both lower legs 08/31 pt denies any chest pain or SOB Carotid US ok for surgery on Saturday 09/01 Doing well Clinically and hemodynamically stable OR 09/02 No issues overnight Planned OR tomorrow morning 09/03 SURGICAL PROCEDURE 1. Aortic Valve Replacement with a 25 mm Medtronic Mosaic Cinch Tissue valve 2. 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 09/04 Doing well Hemato-medically and clinically stable Off of all drips Transfer to [facility]PCU today Maintain chest tubes to drainage Gentle diuresis and beta-priya 09/05 painful, chest tube dc and v wire dc without difficulty continue IV diuresis pulm toileting OOB ambulate continue aggressive pulm toileting nebs ezpap acapella No BM since surgery / additional GI motility meds given eval for dc in am Objective: Vital Signs - 24 hr 09/05/18 10:00 09/05/18 11:00 09/05/18 11:45 Temperature 98.6 F Pulse Rate 76 78 Respiratory Rate 16 Blood Pressure 140/64 Pulse Oximetry 95 95 09/05/18 12:00 09/05/18 12:26 09/05/18 13:00 Temperature Pulse Rate 81 74 Respiratory Rate Blood Pressure Pulse Oximetry 95 09/05/18 13:20 09/05/18 14:00 09/05/18 15:00 Temperature 98.7 F Pulse Rate 75 79 70 Respiratory Rate 20 18 Blood Pressure 119/64 Pulse Oximetry 93 L 09/05/18 16:00 09/05/18 17:00 09/05/18 18:00 Temperature Pulse Rate 74 77 81 Respiratory Rate Blood Pressure Pulse Oximetry 09/05/18 19:00 09/05/18 20:00 09/05/18 20:01 Temperature 98.1 F Pulse Rate 86 82 76 Respiratory Rate 16 24 Blood Pressure 118/61 Pulse Oximetry 93 L 93 L 93 L 09/05/18 21:00 09/05/18 22:00 09/05/18 23:00 Temperature 97.9 F Pulse Rate 76 72 69 Respiratory Rate 18 Blood Pressure 118/62 Pulse Oximetry 94 L 09/06/18 00:00 09/06/18 01:00 09/06/18 02:00 Temperature Pulse Rate 66 68 66 Respiratory Rate Blood Pressure Pulse Oximetry 09/06/18 03:00 09/06/18 04:00 09/06/18 05:00 Temperature 98.1 F Pulse Rate 66 64 66 Respiratory Rate 18 Blood Pressure 99/62 L Pulse Oximetry 93 L 09/06/18 06:00 09/06/18 07:00 09/06/18 08:00 Temperature 98.8 F Pulse Rate 64 65 71 Respiratory Rate 16 Blood Pressure 129/73 Pulse Oximetry 93 L 93 L 09/06/18 09:00 Temperature Pulse Rate 70 Respiratory Rate Blood Pressure Pulse Oximetry GENERAL: A&O x 3 SKIN: Warm and dry. prevena dressing to chest HEAD: Normocephalic. EYES: No scleral icterus. No injection or drainage. NECK: Supple, trachea midline. No JVD or lymphadenopathy. CARDIOVASCULAR: Regular rate and rhythm without murmurs, gallops, or rubs. mild general edema RESPIRATORY: Breath sounds equal bilaterally. No accessory muscle use. diminished in bases, left > right GASTROINTESTINAL: Abdomen soft, non-tender, nondistended. MUSCULOSKELETAL: No cyanosis, or edema. BACK: Nontender without obvious deformity. No CVA tenderness. Labs: Laboratory Results - last 12 hr 09/06/18 09/06/18 04:40 07:51 Sodium 135 L Potassium 4.3 Chloride 96 L Carbon Dioxide 32.2 H Anion Gap 7 BUN 16 Creatinine 0.76 Estimated GFR Greater than 89 POC Glucose 112 H Random Glucose 94 Calcium 8.1 L Magnesium 2.1 Result Diagrams: 09/05/18 05:00 09/06/18 04:40 - Plan (2) Aortic stenosis Plan: RESP: nebs, ezpap acapella CV: ASA, amiodarone gentle diuresis GI: motility meds prophy: BRE and protonix eval for dc in am CM to eval for HHC
[2018-09-07] MEDS: Insulin NovoLOG Aspart Correctional Sugar Inj SQ SCH ×4 (03:17→14:20)
[2018-09-07] MEDS: Amiodarone 200 MG Tablet PO SCH (08:40)
[2018-09-07] MEDS: Carvedilol 12.5 MG Tablet PO SCH (08:40)
[2018-09-07] MEDS: Polyethylene Glycol 3350 17 GM Packet PO SCH (08:41)
[2018-09-07] MEDS: Docusate Sodium 100 MG Capsule PO SCH (08:41)
[2018-09-07] MEDS: Multivitamin/Minerals Therapeutic Tablet PO SCH (08:41)
[2018-09-07] MEDS: Senna/Docusate Sodium 8.6/50 MG Tablet PO SCH (08:41)
[2018-09-07 08:50] VITALS: TEMP 98.2
[2018-09-07 09:34] VITALS: RESP 18
--- NOTE | 2018-09-07 12:10 | P.DS ---
Date of admission: 08/29/18 23:10 Primary care physician: UNKNOWN Attending physician on discharge: Audelia Urrutia Anticipated date of discharge: 09/07/18 Brief History from admission: This is a 53-year-old male patient with a past medical history which includes depression/anxiety, hyperlipidemia, hypertension and severe aortic valve stenosis-2D echocardiogram done February 27, 2018 reveals mildly dilated left ventricle. Moderate concentric left ventricular hypertrophy. Left ventricular systolic function is normal with an estimated ejection fraction 60-65%. The left atrial size is mild to moderately dilated. Mild aortic dilation at level of sinus of Valsalva. The aortic root diameter is measured at 4.6 cm. Mural annular calcification is present. Mild mitral valve regurgitation. Moderate thickening of the aortic valve leaflets. Diffuse calcifications of aortic valve. No aortic valve regurgitation. Severe aortic valve stenosis. Aortic valve area measures 0.6 cm. Aortic valve mean gradient is 85 mmHg. There is mild tricuspid valve regurgitation. The estimated pulmonary arterial pressure is 41.1 mmHg. Estimated RAP 3 mmHg. Patient presented to [facility] with reported worsening shortness of breath and fatigue. Due to severe aortic stenosis patient was then transferred to [facility] for evaluation of valve replacement. Patient denies chest pain, N/V/D/C, fevers/chills, or changes in weight. PMH: depression/anxiety, hyperlipidemia, hypertension and severe aortic valve stenosis PSxH: hydroma removed as an tonsillectomy as a child varicose vein repair x2 Social history: ETOH use once a month former smoker smoked from age 11 quit 3 months ago illicit drug use marijuana 2 times per week cocaine last used 5 years ago Patient update on day of discharge: pt doing well , passed walk test CXR pending, productive cough , whitish sputum, Doxycycline added for 7 days continue lasix at home stable for dc today DS: Diagnosis - Discharge Diagnosis (1) S/P AVR Status: Acute (2) Aortic stenosis Status: Acute (3) Morbid obesity Status: Chronic DS: Medications - Discharge Medications Prescriptions: amiodarone 200 mg PO Q12HR #28 tab aspirin 81 mg PO DAILY #100 tab atorvastatin 40 mg PO DAILY #30 tab carvedilol [Coreg] 12.5 mg PO BID #60 tab clopidogrel [Plavix] 75 mg PO DAILY #30 tab docusate sodium [DOK] 100 mg PO BID #30 cap doxycycline hyclate 100 mg PO Q12HR #14 cap hydrocodone-acetaminophen 1 tab PO Q4H PRN #40 tab PRN Reason: Pain Scale 1 To 5 wtqbnluh-qmye-YH-calcium-mins [Thera M Plus (ferrous fumarat)] 1 tab PO DAILY # 30 tab DS: Summary Hospital Course: 08/31 pt denies any chest pain or SOB Carotid US ok for surgery on Saturday 09/01 Doing well Clinically and hemodynamically stable OR 09/02 No issues overnight Planned OR tomorrow morning 09/03 SURGICAL PROCEDURE 1. Aortic Valve Replacement with a 25 mm Medtronic Mosaic Cinch Tissue valve 2. 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 09/04 Doing well Hemato-medically and clinically stable Off of all drips Transfer to [facility] today Maintain chest tubes to drainage Gentle diuresis and beta-priya 09/05 painful, chest tube dc and v wire dc without difficulty continue IV diuresis pulm toileting 09/06 wean 02 , continue diuresis eval for dc in am - Time Spent with Patient Total time spent providing and/or coordinating discharge services: Greater than 30 minutes - Quality: VTE Deep Vein Thrombosis/Pulmonary Embolism Present on Admission: No Exam Vital signs: Vital Signs 09/06/18 13:00 09/06/18 15:00 09/06/18 15:13 Temperature 97.9 F Pulse Rate 64 64 Respiratory Rate 16 15 Blood Pressure 115/70 Pulse Oximetry 95 Pulse Oximetry [Exertion on Room Air] Pulse Oximetry [Resting on Room Air] 09/06/18 16:00 09/06/18 16:05 09/06/18 17:00 Temperature Pulse Rate 68 66 74 Respiratory Rate 18 Blood Pressure Pulse Oximetry 93 L Pulse Oximetry [Exertion on Room Air] Pulse Oximetry [Resting on Room Air] 09/06/18 17:39 09/06/18 18:00 09/06/18 19:00 Temperature 97.5 F L Pulse Rate 68 72 Respiratory Rate 16 20 Blood Pressure 126/81 Pulse Oximetry 94 L Pulse Oximetry [Exertion on Room Air] Pulse Oximetry [Resting on Room Air] 09/06/18 20:00 09/06/18 21:00 09/06/18 21:03 Temperature Pulse Rate 70 68 71 Respiratory Rate 16 Blood Pressure Pulse Oximetry 94 L Pulse Oximetry [Exertion on Room Air] Pulse Oximetry [Resting on Room Air] 09/06/18 22:00 09/06/18 23:00 09/07/18 00:00 Temperature 98.7 F Pulse Rate 68 67 64 Respiratory Rate 20 Blood Pressure 98/59 L Pulse Oximetry 95 Pulse Oximetry [Exertion on Room Air] Pulse Oximetry [Resting on Room Air] 09/07/18 01:00 09/07/18 02:00 09/07/18 03:00 Temperature 98.7 F Pulse Rate 68 64 63 Respiratory Rate 20 Blood Pressure 104/68 Pulse Oximetry 96 Pulse Oximetry [Exertion on Room Air] Pulse Oximetry [Resting on Room Air] 09/07/18 04:00 09/07/18 04:15 09/07/18 05:00 Temperature Pulse Rate 64 63 62 Respiratory Rate 18 Blood Pressure Pulse Oximetry Pulse Oximetry [Exertion on Room Air] Pulse Oximetry [Resting on Room Air] 09/07/18 06:00 09/07/18 07:00 09/07/18 07:30 Temperature 98.2 F Pulse Rate 69 57 L Respiratory Rate 18 18 Blood Pressure 133/71 Pulse Oximetry 93 L Pulse Oximetry [Exertion on Room Air] Pulse Oximetry [Resting on Room Air] 09/07/18 08:00 09/07/18 08:48 09/07/18 09:00 Temperature Pulse Rate 72 78 Respiratory Rate Blood Pressure Pulse Oximetry 92 L Pulse Oximetry [Exertion on Room Air] Pulse Oximetry [Resting on Room Air] 09/07/18 09:22 09/07/18 09:33 09/07/18 10:00 Temperature Pulse Rate 80 71 Respiratory Rate 20 18 Blood Pressure Pulse Oximetry 92 L Pulse Oximetry [Exertion on Room Air] Pulse Oximetry [Resting on Room Air] 09/07/18 11:23 Temperature Pulse Rate Respiratory Rate Blood Pressure Pulse Oximetry Pulse Oximetry [Exertion on Room Air] 90 L Pulse Oximetry [Resting on Room Air] 93 L Intake & Output 09/06/18 09/07/18 09/07/18 18:59 06:59 18:59 Intake Total 720 / 720 Output Total 1250 / 1250 800 / 800 Balance -1250 / -1250 -80 / -80 Weight 143 kg Intake: Oral 720 / 720 Output: Urine 1250 / 1250 800 / 800 Other: Date of Last Bowel Movement 09/06/18 09/06/18 # Bowel Movements 1 2 - Constitutional no acute distress - Routine HEENT Exam Head: Present: normocephalic Eye: Present: EOMI, PERRL, normal accommodation - Routine Neck Exam Present: supple, full ROM, JVD - Routine Chest/Breast/Axilla Exam Chest wall: Present: tenderness - Routine Respiratory Exam Comments: diminished in bases, few scattered rhonchi - Routine Cardiovascular Exam Present: RRR, S1, S2 - Routine Abdominal Exam Present: soft, normoactive bowel sounds - Routine Extremities Exam Present: full ROM, pulses intact, normal capillary refill - Routine Skin Exam Present: intact, wounds Comments: prevena dressing to chest - Routine Neurological Exam Present: alert, oriented X3, CN II-XII intact Results Procedures completed during hospitalization: Date of procedure: 09/03/18 Anesthesia: GETA Surgeon: Negrito Carrasquillo MD Operation and Findings: PREOPERATIVE DIAGNOSES 1. Severe Aortic Stenosis. 2. Saccular Ascending Aortic Aneurysm 3. Bicuspid Aortic Valve POSTOPERATIVE DIAGNOSES Same SURGICAL PROCEDURE 1. Aortic Valve Replacement with a 25 mm Medtronic Mosaic Cinch Tissue valve 2. 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 Completed studies during hospitalization: RADIOLOGY CONSULTATION REPORT Continued Ordered By: Patient Name: Brennan Barroso MR#: Loc: [id number] [facility] 243-A : Age: 0905/23/1965 53 Order #: [id number] Page 2 of 2 Signed Report #:[id number] Provider [facility] DEPARTMENT OF RADIOLOGY [address] [place] [address] [address] [place] [address] [address] [place] [address] RADIOLOGY CONSULTATION REPORT Ordered By: Kenzie Jacobo MR#: Loc: [id number] [facility] 243-A : Age: 0905/23/1965 53 Order #: [id number] Page 1 of 2 Signed Report #:[id number] Provider Brennan Stearns carotid doppler BI Signed EXAM DATE: 08/30/2018 5:24 PM EST AGE/SEX: 53 years / Male INDICATIONS: Syncope. CLINICAL DATA: This is the patient's initial encounter. Patient reports that signs and symptoms have been present for 1 day and indicates a pain score of 0/ 10. MEDICAL/SURGICAL HISTORY: Hypertension. Hyperlipidemia. Varicose veins. None. COMPARISON: No prior exams available for comparison. VELOCITY PARAMETERS: ICA/CCA Ratio: Right 0.9 , Left 0.8 ICA: Right 47.4 cm/sec, Left 46.3 cm/sec CCA: Right 54.9 cm/sec, Left 60.0 cm/sec ECA: Right 72.6 cm/sec, Left 54.4 cm/sec Vertebral: Right 36.9 cm/sec antegrade, Left 31.3 cm/sec antegrade FINDINGS: Right Carotid: No significant plaque is visualized.The waveforms are within normal limits. Left Carotid: No significant plaque is visualized. The waveforms are within normal limits. Other: None. CONCLUSION: 1. Right Internal Carotid Artery: No significant stenosis or atherosclerotic plaque is visualized. 2. Left Internal Carotid Artery: No significant stenosis or atherosclerotic plaque is visualized. Electronically signed by: Gibran Camp MD Board Certified Radiologist 2017 5:27 PM EST Labs on day of discharge: Labs from last 24 hours 09/07/18 09/07/18 09/07/18 11:42 07:45 03:17 POC Glucose 113 H 115 H 117 H 09/06/18 09/06/18 21:14 16:49 POC Glucose 131 H 134 H - Impressions ITS Impressions Carotid Doppler Study 08/30/18 14:12 CONCLUSION: 1. Right Internal Carotid Artery: No significant stenosis or atherosclerotic plaque is visualized. 2. Left Internal Carotid Artery: No significant stenosis or atherosclerotic plaque is visualized. Chest CT 09/02/18 00:00 CONCLUSION: 1. Dense calcification of the aortic valve level. 2. Aneurysmal dilatation of the ascending aorta. Chest X-Ray 09/06/18 06:00 CONCLUSION: 1. No pneumothorax. 2. Cardiomegaly with pulmonary vascular congestion. 3. Persistent left lower lobe airspace disease. Discharge Plan - Discharge Disposition Patient Disposition: W/Home Health Service - Discharge Condition Condition: Good - Discharge Order Discharge Orders: Discharge Order (Routine); Ordered 09/07/18 Ordered By: Kenzie Jacobo - Discharge Details Anticipated Discharge Date: 09/07/18 Discharge Comment: after CXR - Physicians Team Primary Care Provider: UNKNOWN, Attending Provider: Negrito Carrasquillo Other Providers: Audelia Urrutia MD ; Sherry Alford MD - Rxs /Orders / Referrals /Forms Prescriptions: New amiodarone 200 mg Tablet 200 mg PO Q12HR Qty: 28 RF: 0 aspirin 81 mg Tablet,Chewable 81 mg PO DAILY Qty: 100 RF: 1 atorvastatin 40 mg Tablet 40 mg PO DAILY Qty: 30 RF: 2 carvedilol [Coreg] 12.5 mg Tablet 12.5 mg PO BID Qty: 60 RF: 2 clopidogrel [Plavix] 75 mg Tablet 75 mg PO DAILY Qty: 30 RF: 2 docusate sodium [DOK] 100 mg Capsule 100 mg PO BID Qty: 30 RF: 0 doxycycline hyclate 100 mg Capsule 100 mg PO Q12HR Qty: 14 RF: 0 furosemide [Lasix] 20 mg Tablet 40 mg PO DAILY Qty: 30 RF: 1 hydrocodone-acetaminophen 5-325 mg Tablet 1 tab PO Q4H PRN (Reason: Pain Scale 1 To 5) Qty: 40 RF: 0 wcxdeeue-iezp-LA-calcium-mins [Thera M Plus (ferrous fumarat)] 9 mg iron-400 mcg Tablet 1 tab PO DAILY Qty: 30 RF: 2 potassium chloride [K-Tab] 10 mEq Tablet Extended Release 20 meq PO DAILY Qty: 30 RF: 1 Continue alprazolam 1 mg PO HS ergocalciferol (vitamin D2) 50,000 PO WEEKLY lisinopril 10 mg PO DAILY Discontinued carvedilol 12.5 mg PO BID Referrals: [address] [Other] - See Instructions ( Your appointment has been scheduled for [10/03/18] at [8:00 am] If you cannot make this appointment, please call the office to reschedule ) Kenzie Jacobo [ADVANCE RN PRACTITIONER] - See Instructions ( Your appointment has been scheduled for [09/25/18] at [11:00 AM] If you cannot make this appointment, please call the office to reschedule ) Roopa Brennan MD [Physician] - See Instructions ( Your appointment has been scheduled for [09/19/18] at [12:15 pm] If you cannot make this appointment, please call the office to reschedule ) Kaitlin Brady,Agency [Agency] - See Instructions - Discharge Instructions Additional Instructions: HOME HEALTH CARE HAS BEEN ARRANGED WITH MELVIN BRADY, CONTACT#[phone] PREVENA Single Use Negative Wound Therapy System Caregiver Instruction Sheet 1. A Prevena dressing system was applied to the chest incision during surgery , to promote wound healing. It works via a suction device (negative pressure wound therapy) to remove low to moderate levels of exudate (drainage) and infectious materials. We recommend that the device stay in place for up to seven days, from day of surgery. 2. Day of Surgery___09/03/18 Day of Removal ___09/10/18 3. The dressing should only be removed by a health pet care assistant. Please arrange removal of device to coincide with Home Health visit and or with Nursing staff at Rehab 4. If skin reddening or irritation of skin occurs, or excessive drainage, please notify the Cardiovascular Surgeons office at [phone]. 5. Light showering is permissible; however the pump should be disconnected and placed in safe location, where it will not get wet. The dressing should not be exposed to direct spray or submerged in water. No bath tub / shower only. Ensure the end of the tubing attached to the dressing is facing down so that water does not enter the top of the tube. 6. To remove Prevena dressing: press purple button to turn off device / remove the suction. Then disconnect the tubing from the pump. The fixation strips should be stretched away from the skin and the dressing lifted at one corner and peeled back until it has been fully removed. 7. After removal, it is ok to shower daily using liquid dial soap and clean wash cloth, rinse and pat dry, and leave incision open to air dry. For any concerns regarding Prevena dressing, and or wounds, please contact Queta Arredondo, patient navigator at [phone] or notify the Cardiovascular Surgeons office at [phone]. Incentive spirometry Q1 hr x 10, while awake, also use acapella device hourly whole awake Sternal Breast Bone Precautions: NO pushing or pulling, ( pt must use sternal pillow to support chest with all activities and with coughing ( takes up to 3 months breast bone to heal ) Daily incision care: ok to shower daily, no tub bath. Wash all incisions with liquid dial soap, clean wash cloth to each site, rinse and pat dry. Observe for any signs of infection, such as drainage which is dark yellow, horton, green or foul smelling. Immediately report to the surgeon any drainage from the chest incision, or legs, and for any abnormal drainage from the chest tube sites. Notify surgeon if any temp >101.5 degrees F. When specialty dressing removed/ or if you do not have one, continue to shower daily as above, then rinse and pat incision dry and paint with betadine daily x 5 days. Allow steri strips to fall off if you have any. Avoid lotions, creams, salves, oils, etc. for the first month Please see attached forms for additional instructions regarding post Open Heart specialty wound vacuum dressings. ROSALIA or Prevena , Dressing to be removed by Nursing staff on _09/10/18 F/U appointment: as per [place] instructions: PCP in 2 weeks, CV surgeon 2 weeks, Jig And Fixture Repairer 3-4 weeks For any questions regarding incisions/ dressing / meds / post op care or above Symptoms, Monday 8am-5pm Heart & Vascular Surgery Office ( Dr. Carrasquillo & Dr. Urrutia), After Hours / Nights (5pm -8am) Weekends and Holidays Please call [facility] Cardiac Intermediate Care Unit (CIC) Charge Nurse
--- NOTE | 2018-09-07 12:24 | XR ---
EXAM DATE: 09/07/2018 12:12 PM EST AGE/SEX: 53 years / Male INDICATIONS: R/O PNA/effusion. CLINICAL DATA: This is the patient's subsequent encounter. Patient reports that signs and symptoms h ave been present for 1 day and indicates a pain score of 0/10. MEDICAL/SURGICAL HISTORY: . Hypertension. . Aortic valve replacement. . COMPARISON: [facility], CHEST 1V SINGLE AP, 09/06/2018. . FINDINGS: The heart is enlarged. Median sternotomy wires are noted status post cardiac surgery. Small left pleu ral effusion is noted. There is improved aeration of the lungs without focal infiltrate or pulmonary vascular congestion. CONCLUSION: 1. Small left pleural effusion. 2. Cardiomegaly. 3. Improved aeration of the lungs bilaterally. Electronically signed by: Casa Srivastava MD Board Certified Radiologist 09/07/2018 12:22 PM EST
[2018-09-07 12:41] VITALS: BP 117/67; O2SAT 92
[2018-09-07 14:54] VITALS: PULSE 72
== END 2018-09-07 15:21 | disposition home health service (06) | DRG 219 ==
LOC: HCIS 23:10 → HCPC 08-30 17:55 → HCVI 09-03 12:49 → HCPC 09-04 14:00
PROVIDERS: ADMIT Thoracic Surgery (Cardiothoracic Vascular Surgery); ATTEND Thoracic Surgery (Cardiothoracic Vascular Surgery)
DX: Z87.891 Personal history of nicotine dependence; E66.01 Morbid (severe) obesity due to excess calories; F12.90 Cannabis use, unspecified, uncomplicated; F32.9 Major depressive disorder, single episode, unspecified; Q23.1 Congenital insufficiency of aortic valve; F41.9 Anxiety disorder, unspecified; I08.1 Rheumatic disorders of both mitral and tricuspid valves; Z68.41 Body mass index [BMI] 40.0-44.9, adult; J95.821 Acute postprocedural respiratory failure; I50.9 Heart failure, unspecified; I71.2 Thoracic aortic aneurysm, without rupture; I95.81 Postprocedural hypotension; Z79.899 Other long term (current) drug therapy; I27.20 Pulmonary hypertension, unspecified; D62 Acute posthemorrhagic anemia; I11.0 Hypertensive heart disease with heart failure; E78.5 Hyperlipidemia, unspecified; Z82.3 Family history of stroke; I83.93 Asymptomatic varicose veins of bilateral lower extremities
CPT/HCPCS: 36430; 71010; 71020; 71045; 71046; 71250; 80048; 80053; 82948; 82962; 83036; 83735; 85025; 85027; 85610; 85730; 86850; 86900; 86901; 86923; 87641; 88305; 88311; 93005; 93312; 93318; 93880; 94002; 94010; 94150; 94618; 94620; 94640; 94650; 94651; 94656; 94664; 94665; 94667; 94668; 97110; 97162; 97530; J0131; J0171; J0690; J1644; J1815; J1817; J1885; J1940; J2150; J2250; J2370; J2720; J3010; J3370; J3480; J7040; J7060; J7120; P9016; P9045; P9047